=== PATIENT | female | born 1980 | race Caucasian/White ===

== ENCOUNTER 2020-11-22 12:28 | Emergency (ER) | payer OTHER, MEDICAID, SELFPAY ==
[2020-11-22 12:40] VITALS: BP 152/88; PULSE 89; RESP 15; TEMP 36.9; O2SAT 99; BMI 25.7
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
--- NOTE | 2020-11-22 13:44 | PC.NURSE ---
PT states she needs to leave to fruit or nut picker her son. Wants to leave before having seen MD. Asked if she could come right back. Informed pt that she will have to check back in at registration. Signed VDC form.
== END 2020-11-22 13:48 | disposition left against medical advice (07) ==
PROVIDERS: Emergency Provider Emergency Medicine; PCP Nurse Practitioner Family
CPT/HCPCS: 99281

== ENCOUNTER 2021-12-04 10:07 | Emergency (ER) | payer OTHER, MEDICAID, SELFPAY ==
[2021-12-04 10:09] VITALS: BP 138/75; PULSE 67; RESP 15; TEMP 36.7; O2SAT 100; BMI 26.2
[2021-12-04 10:49] LABS: COVID19 -Nasal RAPID Negative (Negative)
== END 2021-12-04 11:00 | disposition left against medical advice (07) ==
PROVIDERS: Emergency Provider Emergency Medicine; PCP Nurse Practitioner Family
DX: R07.9 Chest pain, unspecified (principal); Z20.822 Contact with and (suspected) exposure to COVID-19
CPT/HCPCS: 87635; 93005; 93010; 99282; C9803

== ENCOUNTER 2022-02-25 21:38 | Emergency (ER) | payer OTHER, MEDICAID, SELFPAY ==
[2022-02-25 21:45] VITALS: BP 173/115; PULSE 94; RESP 18; TEMP 36.6; O2SAT 96
--- NOTE | 2022-02-25 22:02 | ED.FEMALEGU ---
HPI - Female Genitourinary General Chief complaint: OB/Uterine Contractions Stated complaint: thinks having a miscarriage Time Seen by Provider: 02/25/22 21:56 Source: patient Mode of arrival: Ambulatory History of Present Illness HPI Narrative: 42-year-old female nonsmoker is a who thinks maybe she is and had heavy vaginal bleeding today. She had some spotting yesterday and today had heavy cramping and passed a large clot and thought it looked like tissue and came to see us. She is not taken any positive test but assume she is given what had happened. She denies any fever chills. She is not dizzy nor weak or lightheaded. Her last normal period was about 6 weeks ago. Related Data Home Medications Medication Instructions Recorded Confirmed buprenorphine 8 mg-naloxone 2 mg 1 tab sublingual DAILY 01/01/21 sublingual tablet Allergies Allergy/AdvReac Type Severity Reaction Status Date / Time No Known Drug Allergies Allergy Verified 12/04/21 10:09 Review of Systems Review of Systems Narrative: GENERAL: Denies chills, fatigue, malaise, fever, sweats. HEENT: Denies sinus pain, ear pain, sore throat, difficulty swallowing, dizziness. RESPIRATORY: Denies dyspnea, cough, wheezing, hemoptysis, sputum. CARDIOVASCULAR: Denies chest pain, palpitations, orthopnea, edema, GASTROINTESTINAL: Denies nausea, vomiting, abdominal pain, diarrhea, constipation, melena. : See HPI MUSCULOSKELETAL: denies weakness, joint pain, or bony pain SKIN: Denies rash, skin lesions, or other NEUROLOGIC: Denies weakness, headache, numbness, change in speech, confusion, seizures, incoordination. PSYCHIATRIC: No concerning psychosocial issues. 12 point review of systems is negative except for those stated above Patient History Medical History (Updated 02/26/22 @ 00:34 by Nato Fermin DO) Encounter for routine gynecological examination (01/01/21) Encounter for wellness examination in adult (01/01/21) tobacco type: vaping alcohol intake frequency: holidays/special occasions only Substance Use Type: marijuana Exam Narrative Exam Narrative: GENERAL: [42] year old patient appears stated age. Well-developed patient, in mild distress. HEAD: Atraumatic. Normocephalic. EYES: Pupils equal round and reactive. Extraocular motions intact. No scleral icterus. No injection or drainage. ENT: Nose without bleeding, purulent drainage. Throat without erythema, tonsillar hypertrophy or exudate. Airway patent. NECK: Trachea midline. Non tender CARDIOVASCULAR: Regular rate and rhythm without murmurs, gallops, or rubs. RESPIRATORY: Clear to auscultation. Breath sounds equal bilaterally. No wheezes, rales, or rhonchi. GASTROINTESTINAL: Abdomen soft, non-tender, nondistended. EXTREMITIES: No edema or joint tenderness. BACK: Nontender without deformity or crepitance. No flank tenderness. NEURO: AOx3. SKIN: No rash or erythema of visible areas Initial Vital Signs Initial Vital Signs: Vital Signs Temperature 98 F 02/25/22 21:45 Pulse Rate 94 H 02/25/22 21:45 Respiratory Rate 18 02/25/22 21:45 Blood Pressure 173/115 H 02/25/22 21:45 Pulse Oximetry 96 02/25/22 21:45 Oxygen Delivery Method 02/25/22 21:45 Course Orders Ordered: ED Orders 02/25/22 22:27 US pelvic complete Stat 02/25/22 22:50 COVID19 -Nasal RAPID/Pre-Proc Stat 02/25/22 22:51 ABO RH Type Stat Complete Blood Count AUTO DIFF Stat Comprehensive Metabolic Panel Stat HCG Quantitative /Beta subunit Stat 02/25/22 22:58 Urine Culture Stat Urine Microscopic Stat Vital Signs Vital signs: Vital Signs - 8 hr 02/25/22 21:45 Temperature 98 F Pulse Rate 94 H Respiratory Rate 18 Blood Pressure 173/115 H Pulse Oximetry 96 Oxygen Delivery Method Room Air MDM - Female Genitourinary Lab Data Result diagrams: 02/25/22 22:51 02/25/22 22:51 Labs: Lab Results 02/25/22 02/25/22 02/25/22 Range/Units 22:50 22:51 22:51 WBC (4.5-11.0) X10^3/uL RBC (4.0-5.2) X10^6/uL Hgb (12.0-16.0) g/dL Hct (36-46) % MCV (80-100) fL MCH (26-34) PG MCHC (30-36) % RDW (11.6-14.8) % Plt Count (150-400) X10^3/uL Neut % (Auto) (50-75) % Lymph % (Auto) (25-40) % [place] % (Auto) (3-14) % Eos % (Auto) (2-4) % Baso % (Auto) (0-2) % Neut # (Auto) (1372-8569) /uL Lymph # (Auto) (2410-6628) /uL [place] # (Auto) (0-900) /uL Eos # (Auto) (0-450) /uL Baso # (Auto) (0-100) /uL Sodium (137-145) mmol/L Potassium (3.4-5.1) mmol/L Chloride (98-107) mmol/L Carbon Dioxide (22-32) mmol/L BUN (7-17) mg/dL Creatinine (0.52-1.04) mg/dL Estimated GFR (>60) mL/min BUN/Creatinine Ratio (6-22) Glucose (70-100) mg/dL Calcium (8.4-10.2) mg/dL Total Bilirubin (0.2-1.3) mg/dL AST (14-36) IU/L ALT (<35) IU/L Alkaline Phosphatase (38-126) U/L Total Protein (6.3-8.2) g/dL Albumin (3.5-5.0) g/dL Globulin (1.7-4.1) g/dL Albumin/Globulin Ratio (1.0-2.8) HCG, Quant < 2.4 mIU/mL Urine RBC (0-5/HPF) Urine WBC (0-5/HPF) Ur Squamous Epith Cells (0-5/HPF) Urine Bacteria (None) Urine Mucus (Negative) Ur Culture Indicated? SARS-CoV-2 (PCR) Negative (Negative) Blood Type A Positive 02/25/22 02/25/22 02/25/22 Range/Units 22:51 22:51 22:58 WBC 8.4 (4.5-11.0) X10^3/uL RBC 4.20 (4.0-5.2) X10^6/uL Hgb 12.6 (12.0-16.0) g/dL Hct 36.9 (36-46) % MCV 88.0 (80-100) fL MCH 30.0 (26-34) PG MCHC 34.0 (30-36) % RDW 13.5 (11.6-14.8) % Plt Count 317 (150-400) X10^3/uL Neut % (Auto) 73.7 (50-75) % Lymph % (Auto) 13.4 L (25-40) % [place] % (Auto) 9.1 (3-14) % Eos % (Auto) 3.0 (2-4) % Baso % (Auto) 0.8 (0-2) % Neut # (Auto) 6200 (8115-0132) /uL Lymph # (Auto) 1100 (0542-5296) /uL [place] # (Auto) 800 (0-900) /uL Eos # (Auto) 200 (0-450) /uL Baso # (Auto) 100 (0-100) /uL Sodium 140 (137-145) mmol/L Potassium 3.8 (3.4-5.1) mmol/L Chloride 104 (98-107) mmol/L Carbon Dioxide 27 (22-32) mmol/L BUN 13 (7-17) mg/dL Creatinine 0.58 (0.52-1.04) mg/dL Estimated GFR > 60 (>60) mL/min BUN/Creatinine Ratio 22.4 H (6-22) Glucose 95 (70-100) mg/dL Calcium 8.4 (8.4-10.2) mg/dL Total Bilirubin 0.4 (0.2-1.3) mg/dL AST 24 (14-36) IU/L ALT 18 (<35) IU/L Alkaline Phosphatase 61 (38-126) U/L Total Protein 7.8 (6.3-8.2) g/dL Albumin 4.2 (3.5-5.0) g/dL Globulin 3.6 (1.7-4.1) g/dL Albumin/Globulin Ratio 1.2 (1.0-2.8) HCG, Quant mIU/mL Urine RBC 30-100/hpf H (0-5/HPF) Urine WBC 1-5/hpf (0-5/HPF) Ur Squamous Epith Cells 1-5 /hpf (0-5/HPF) Urine Bacteria Few (2-10) H (None) Urine Mucus 2+ H (Negative) Ur Culture Indicated? Specimen cultured SARS-CoV-2 (PCR) (Negative) Blood Type Point of Care Testing Test Results Negative Urine Dip Bedside Urine Glucose Negative Bedside Urine Bilirubin - Negative Bedside Urine Ketone - Negative Urine Specific [place] 1.030 Bedside Urine Occult Blood +++ Bedside Urine pH 6.0 Bedside Urine Protein + 30 Bedside Urine Urobilinogen +/- 1mg Bedside Urine Nitrite - Negative Bedside Urine Leukocytes - Negative Esterase Imaging Data US - [employer]: Radiologist's Impression: Radha Arias??42??F??1980 ? Allergy/Adv: No Known Drug Allergies (More??) Close Pelvis Ultrasound (Signed) Torres Lester - 02/25/22 Launch?[address] [address] Ultrasound Report Signed Patient: Radha Arias MR#: [id number] : 1980 Acct:[id number] Age/Sex: 42 / F Date of Service: 02/25/22 Loc: ED Accession Number: [id number] ?? Procedure: US pelvic complete Ordering Provider: Nato Fermin D.O. PROCEDURE:? US PELVIC COMPLETE ? INDICATIONS:? BLEEDING ? TECHNIQUE:? Real-time scanning was performed of the pelvic organs, with image documentation.? Additional endovaginal scanning was necessary due to incomplete visualization of the adnexal and endometrial structures by transabdominal scanning.? ? COMPARISON:? No pertinent prior study. ? FINDINGS:? ?? Uterine body is markedly enlarged measuring 9.0 x 11.2 x 17 cm.? Multiple uterine fibroids present.? Largest fibroid measures 9 cm.? Detailed characterization of the fibroids is limited due to the large size and overall market enlargement of uterus with limited sonographic windows. ? Endometrium is largely obscured by the fibroids. ? Neither ovary identified? ? ? IMPRESSION:? Markedly enlarged multi fibroid uterus.? Nonemergent MR evaluation recommended if results would impact management.? We strive to produce accurate, complete, and clear reports of imaging services. To assist us in improving patient care, this report was composed using standard report templates and voice recognition software. Therefore, it may contain abnormal punctuation, insertions and/or omissions. Occasional wrong-word or sound-alike substitutions may occur. Though we review the report and make efforts to correct it, we do recommend that the report be read carefully in proper context to recognize any text inaccuracies. ? ? Dictated by: Torres Lester M.D. on 02/26/2022 at 0:11 ? ? Approved by: Torres Lester M.D. on 02/26/2022 at 0:12 ? MDM Narrative Medical decision making narrative: 42-year-old female with episode of pelvic cramping in the passage of a large clot presents with concern of miscarriage. She states her last period was 6 weeks ago. She is no longer actively bleeding and has very minimal pain. Vital signs are reassuring and tests are all negative. Ultrasound demonstrates fibroids but no evidence of any intrauterine products. She is hemodynamically stable. Return precautions discussed and questions answered to her apparent satisfaction Discharge Plan Departure Patient Disposition: Home Clinical Impression: Abnormal vaginal bleeding Instructions: DI for Vaginal Bleeding Activity Restrictions/Additional Instructions: *You have been diagnosed with [abnormal vaginal bleeding with very reassuring work and urine. There is no evidence of . The ultrasound suggests fibroids in her uterus and this will need to be followed closely by your doctor who will help further evaluate this, possibly with referral to OB Gyne or advanced imaging such as an MRI] *What to do: *Please continue to take your regular medications as directed. [ ] New medication prescriptions sent to your pharmacy: [ ] [ ] New medication written as a paper prescription [x ] No new medications given *Please follow up with your primary care provider in 2-3 days, call for an appointment. Let them know you were seen in the Emergency Department and that we ask that you be seen in follow up. We will electronically transmit a record of today's note if your PCP is in our system *If you do not have a primary care provider please contact the [facility] Resource line at [phone]. They will ask some questions about your medical history and help get you set up with a doctor in the community. *Return to Emergency Department if you should have any new, worsening or concerning symptoms, such as [fever greater than 101 F, shaking chills, worsening pain, persistent vomiting or other bothersome symptoms] Prescriptions: No Action buprenorphine-naloxone 8-2 mg tablet, sublingual 1 tab SL DAILY Referrals: Courtney Dyer ARNP [Primary Care Provider] - Visit Report Forms: Patient Portal/API
--- NOTE | 2022-02-25 22:27 | DI.US.S_ITS ---
PROCEDURE: US PELVIC COMPLETE INDICATIONS: BLEEDING TECHNIQUE: Real-time scanning was performed of the pelvic organs, with image documentation. Additional endovaginal scanning was necessary due to incomplete visualization of the adnexal and endometrial structures by transabdominal scanning. COMPARISON: No pertinent prior study. FINDINGS: Uterine body is markedly enlarged measuring 9.0 x 11.2 x 17 cm. Multiple uterine fibroids present. Largest fibroid measures 9 cm. Detailed characterization of the fibroids is limited due to the large size and overall market enlargement of uterus with limited sonographic windows. Endometrium is largely obscured by the fibroids. Neither ovary identified IMPRESSION: Markedly enlarged multi fibroid uterus. Nonemergent MR evaluation recommended if results would impact management. We strive to produce accurate, complete, and clear reports of imaging services. To assist us in improving patient care, this report was composed using standard report templates and voice recognition software. Therefore, it may contain abnormal punctuation, insertions and/or omissions. Occasional wrong-word or sound-alike substitutions may occur. Though we review the report and make efforts to correct it, we do recommend that the report be read carefully in proper context to recognize any text inaccuracies. Dictated by: Torres Lester M.D. on 02/26/2022 at 0:11 Approved by: Torres Lester M.D. on 02/26/2022 at 0:12
[2022-02-25 23:04] LABS: Add Manual Diff / Slide Review NO; Basophils Absolute Auto 100 /uL (0-100); Basophils Percent Auto 0.8 % (0-2); Eosinophils Absolute Auto 200 /uL (0-450); Hematocrit 36.9 % (36-46); Hemoglobin 12.6 g/dL (12.0-16.0); Lymphocytes Absolute Auto 1100 /uL (1100-4500); Lymphocytes Percent Auto 13.4 % (25-40); Monocytes Absolute Auto 800 /uL (0-900); Monocytes Percent Auto 9.1 % (3-14); Neutrophils Absolute Auto 6200 /uL (1500-7000); Neutrophils Percent Auto 73.7 % (50-75); Platelet Count 317 X10^3/uL (150-400); Red Cell Distribution Width 13.5 % (11.6-14.8); White Blood Cell Count 8.4 X10^3/uL (4.5-11.0)
[2022-02-25 23:10] LABS: COVID19 -Nasal RAPID Negative (Negative)
[2022-02-25 23:14] LABS: Alanine Aminotransferase 18 IU/L (<35); Albumin 4.2 g/dL (3.5-5.0); Albumin Globulin Ratio 1.2 (1.0-2.8); Alkaline Phosphatase 61 U/L (38-126); Aspartate Aminotransferase 24 IU/L (14-36); BUN Creatinine Ratio 22.4 (6-22); Bilirubin Total 0.4 mg/dL (0.2-1.3); Blood Urea Nitrogen 13 mg/dL (7-17); Calcium 8.4 mg/dL (8.4-10.2); Carbon Dioxide 27 mmol/L (22-32); Chloride 104 mmol/L (98-107); Estimated Glomerular Filt Rate > 60 mL/min (>60); Globulin 3.6 g/dL (1.7-4.1); Glucose 95 mg/dL (70-100); HEMOLYSIS < 15 (0-50); Potassium 3.8 mmol/L (3.4-5.1); Sodium 140 mmol/L (137-145); Total Protein 7.8 g/dL (6.3-8.2)
[2022-02-25 23:25] LABS: Mucus Urine 2+ (Negative); RBC Urine 30-100/HPF (0-5/HPF); Squamous Epithelial Cell Urine 1-5 /HPF (0-5/HPF); WBC Urine 1-5/HPF (0-5/HPF)
[2022-02-25 23:26] LABS: Bacteria Urine Few (2-10)
[2022-02-25 23:27] LABS: Culture Indicated Urine Specimen Cultured
[2022-02-25 23:47] LABS: HCG Quantitative /Beta subunit < 2.4 mIU/mL
[2022-02-26 00:50] VITALS: BP 137/77; PULSE 89; RESP 18; O2SAT 93
== END 2022-02-26 00:51 | disposition home or self-care (01) ==
PROVIDERS: Emergency Provider Emergency Medicine; PCP Nurse Practitioner Family
DX: N93.9 Abnormal uterine and vaginal bleeding, unspecified (principal); Z20.822 Contact with and (suspected) exposure to COVID-19
CPT/HCPCS: 36415; 76830; 76856; 80053; 81003; 81015; 81025; 84702; 85025; 86900; 86901; 87077; 87086; 87186; 87635; 99282; 99284; C9803

== ENCOUNTER → 2022-02-28 15:27 | Outpatient (CLI) | payer OTHER, MEDICAID, SELFPAY ==
[2022-02-28 16:58] LABS: Add Manual Diff / Slide Review NO; Basophils Absolute Auto 0 /uL (0-100); Basophils Percent Auto 0.7 % (0-2); Eosinophils Absolute Auto 200 /uL (0-450); Eosinophils Percent Auto 4.5 % (2-4); Hematocrit 37.4 % (36-46); Hemoglobin 12.8 g/dL (12.0-16.0); Lymphocytes Absolute Auto 1300 /uL (1100-4500); Lymphocytes Percent Auto 24.7 % (25-40); Mean Corpuscular HGB Conc 34.2 % (30-36); Mean Corpuscular Hemoglobin 30.3 PG (26-34); Mean Corpuscular Volume 88.6 fL (80-100); Monocytes Absolute Auto 600 /uL (0-900); Monocytes Percent Auto 11.1 % (3-14); Neutrophils Absolute Auto 3200 /uL (1500-7000); Platelet Count 319 X10^3/uL (150-400); Red Blood Cell Count 4.22 X10^6/uL (4.0-5.2); Red Cell Distribution Width 13.4 % (11.6-14.8); White Blood Cell Count 5.4 X10^3/uL (4.5-11.0)
[2022-02-28 18:36] LABS: HCG Quantitative /Beta subunit < 2.4 mIU/mL
== END ==
PROVIDERS: PCP Pediatrics; Referring Provider Pediatrics; Visit Provider Pediatrics
DX: N93.9 Abnormal uterine and vaginal bleeding, unspecified (principal); R10.2 Pelvic and perineal pain
CPT/HCPCS: 36415; 84702; 85025

== ENCOUNTER 2022-12-04 12:13 | Emergency (ER) | payer OTHER, MEDICAID, SELFPAY ==
[2022-12-04 12:23] VITALS: BP 163/93; PULSE 93; RESP 18; TEMP 36.6; O2SAT 100; BMI 25.7
--- NOTE | 2022-12-04 12:31 | DI.RAD.S_ITS ---
PROCEDURE: XR CHEST 1V INDICATIONS: chest pain TECHNIQUE: One view of the chest was acquired. COMPARISON: [facility], , CHEST 2 VIEW, 02/15/2007, 9:35. FINDINGS: Surgical changes and devices: None. Lungs and pleura: Lungs are clear. No pleural effusions or pneumothorax. Mediastinum: Mediastinal contours appear normal. Heart size is normal. Bones and chest wall: No suspicious bony lesions. Overlying soft tissues appear unremarkable. IMPRESSION: No acute cardiopulmonary process. Dictated by: Eliezer Blevins M.D. on 12/04/2022 at 12:52 Approved by: Eliezer Blevins M.D. on 12/04/2022 at 12:52
--- NOTE | 2022-12-04 12:58 | ED.CHESTPAIN ---
HPI - Chest Pain General Chief Complaint: Chest Pain Stated Complaint: sob, swollen ankles, extremly dizzy Time Seen by Provider: 12/04/22 12:43 Source: patient Mode of arrival: Ambulatory Limitations: no limitations History of Present Illness HPI narrative: Patient is a 42-year-old female who comes in the emergency department for evaluation of shortness of breath specific on exertion and bilateral swollen ankles and also feeling dizzy. Her legs have been swollen for the past 2 weeks. She states that they do seem to get better in the morning but then worse as the day goes on. She did recently returned from a vacation in [place] however the legs were swollen prior to that. While she was in [place] she states that it was very hot. She did not drink enough water. On the flight home she had an episode of vomiting. She had an evaluation by medical providers who were on the aircraft. She reports that she was told that her oxygen saturations were in the 70s and she was placed on oxygen. When the plane landed she did not go to be evaluated. That was 3 days ago. She is not been on oxygen for the past 3 days. She states she gets short of breath with exerting. No chest pain. No continued nausea or vomiting. Related Data Previous Rx's Medication Instructions Recorded medroxyprogesterone 10 mg tablet 10 mg PO DAILY #90 tabs 11/14/22 furosemide 20 mg tablet (Lasix) 20 mg PO DAILY 7 days #7 tabs 12/04/22 Allergies Allergy/AdvReac Type Severity Reaction Status Date / Time No Known Drug Allergies Allergy Verified 12/04/22 12:31 Review of Systems Review of Systems ROS Unobtainable: All systems reviewed & are unremarkable except as noted in HPI and below Patient History Social History Smoking Status: Current every day smoker Tobacco: How many years used: 2 second hand exposure: Yes alcohol intake: current (1 glass of wine, 1-2x/week) substance use type: does not use Smoking Status: Current every day smoker tobacco type: vaping alcohol intake frequency: holidays/special occasions only Substance Use Type: marijuana Exam Initial Vital Signs Initial Vital Signs: Vital Signs Temperature 97.9 F 12/04/22 12:23 Pulse Rate 93 H 12/04/22 12:23 Respiratory Rate 18 12/04/22 12:23 Blood Pressure 163/93 H 12/04/22 12:23 Pulse Oximetry 100 12/04/22 12:23 Oxygen Delivery Method Room Air 12/04/22 12:23 Const General: cooperative, comfortable and No ill appearing HENMT Head: normal to inspection and normocephalic Resp Effort & Inspection: normal respiratory effort Auscultation: clear to auscultation bilaterally Cardio Rate: regular rate Rhythm: regular rhythm GI Inspection: normal to inspection Skin General: no rashes or lesions noted Neuro General: patient alert, patient awake, patient oriented x3 and moves all extremities Extrem General: edema Course Orders Ordered: ED Orders 12/04/22 12:31 XR chest 1V Stat 12/04/22 12:52 Complete Blood Count AUTO DIFF Stat Comprehensive Metabolic Panel Stat D Dimer Stat Lipase Stat Magnesium Stat PTT Partial Thromboplastin Anders Stat Prothrombin Time INR Stat Troponin & CK Cardiac Panel Stat 12/04/22 12:55 Covid-19 + FLU A/B + RSV - PCR Stat 12/04/22 12:57 COVID19 -Nasal RAPID Stat 12/04/22 14:04 EKG-12 Lead Stat Discontinued Medications Aspirin (Aspirin 81 Mg Chew Tab) 324 mg PO NOW ONE Stop: 12/04/22 12:32 Last Admin: 12/04/22 13:02 Dose: Not Given Documented By: SKINNY Vital Signs Vital signs: Vital Signs - 8 hr 12/04/22 12:23 12/04/22 14:17 12/04/22 14:37 Temperature 97.9 F Pulse Rate 93 H 93 H 79 Respiratory Rate 18 16 18 Blood Pressure 163/93 H 117/66 134/87 Pulse Oximetry 100 99 100 Oxygen Delivery Method Room Air Room Air Room Air MDM - Chest Pain Lab Data Attestation: I reviewed the patient's lab results. 12/04/22 12:52 12/04/22 12:52 Labs: Lab Results 12/04/22 12/04/22 12/04/22 Range/Units 12:52 12:52 12:52 WBC 5.1 (4.5-11.0) X10^3/uL RBC 4.69 (4.0-5.2) X10^6/uL Hgb 12.9 (12.0-16.0) g/dL Hct 39.6 (36-46) % MCV 84.4 (80-100) fL MCH 27.4 (26-34) PG MCHC 32.5 (30-36) % RDW 14.2 (11.6-14.8) % Plt Count 336 (150-400) X10^3/uL Neut % (Auto) 56.6 (50-75) % Lymph % (Auto) 24.9 L (25-40) % [place] % (Auto) 9.0 (3-14) % Eos % (Auto) 8.8 H (2-4) % Baso % (Auto) 0.7 (0-2) % Neut # (Auto) 2900 (9039-7275) /uL Lymph # (Auto) 1300 (0190-6308) /uL [place] # (Auto) 500 (0-900) /uL Eos # (Auto) 500 H (0-450) /uL Baso # (Auto) 0 (0-100) /uL PT 10.3 (10.1-12.7) SECONDS INR 0.9 (0.9-1.3) APTT 40 H (26-36) SECONDS D-Dimer (<500) ng/ml Sodium 141 (137-145) mmol/L Potassium 3.6 (3.4-5.1) mmol/L Chloride 103 (98-107) mmol/L Carbon Dioxide 29 (22-32) mmol/L BUN 10 (7-17) mg/dL Creatinine 0.70 (0.52-1.04) mg/dL Estimated GFR > 60 (>60) mL/min BUN/Creatinine Ratio 14.3 (6-22) Glucose 81 (70-100) mg/dL Calcium 8.9 (8.4-10.2) mg/dL Magnesium 2.0 (1.6-2.3) mg/dL Total Bilirubin 0.3 (0.2-1.3) mg/dL AST 27 (14-36) IU/L ALT 22 (<35) IU/L Alkaline Phosphatase 78 (38-126) U/L Total Creatine Kinase 88 (30-135) U/L CK-MB (CK-2) TNP CK-MB (CK-2) Rel Index TNP Troponin I < 0.012 (0.01-0.034) ng/mL Total Protein 8.9 H (6.3-8.2) g/dL Albumin 4.6 (3.5-5.0) g/dL Globulin 4.3 H (1.7-4.1) g/dL Albumin/Globulin Ratio 1.1 (1.0-2.8) Lipase 96 (23-300) U/L SARS-CoV-2 (PCR) (Negative) Influenza A (RT-PCR) (NEGATIVE) Influenza B (RT-PCR) (NEGATIVE) RSV (PCR) (Negative) 12/04/22 12/04/22 Range/Units 12:52 12:55 WBC (4.5-11.0) X10^3/uL RBC (4.0-5.2) X10^6/uL Hgb (12.0-16.0) g/dL Hct (36-46) % MCV (80-100) fL MCH (26-34) PG MCHC (30-36) % RDW (11.6-14.8) % Plt Count (150-400) X10^3/uL Neut % (Auto) (50-75) % Lymph % (Auto) (25-40) % [place] % (Auto) (3-14) % Eos % (Auto) (2-4) % Baso % (Auto) (0-2) % Neut # (Auto) (6053-8381) /uL Lymph # (Auto) (4248-0654) /uL [place]mers # (Auto) (0-900) /uL Eos # (Auto) (0-450) /uL Baso # (Auto) (0-100) /uL PT (10.1-12.7) SECONDS INR (0.9-1.3) APTT (26-36) SECONDS D-Dimer 423 (<500) ng/ml Sodium (137-145) mmol/L Potassium (3.4-5.1) mmol/L Chloride (98-107) mmol/L Carbon Dioxide (22-32) mmol/L BUN (7-17) mg/dL Creatinine (0.52-1.04) mg/dL Estimated GFR (>60) mL/min BUN/Creatinine Ratio (6-22) Glucose (70-100) mg/dL Calcium (8.4-10.2) mg/dL Magnesium (1.6-2.3) mg/dL Total Bilirubin (0.2-1.3) mg/dL AST (14-36) IU/L ALT (<35) IU/L Alkaline Phosphatase (38-126) U/L Total Creatine Kinase (30-135) U/L CK-MB (CK-2) CK-MB (CK-2) Rel Index Troponin I (0.01-0.034) ng/mL Total Protein (6.3-8.2) g/dL Albumin (3.5-5.0) g/dL Globulin (1.7-4.1) g/dL Albumin/Globulin Ratio (1.0-2.8) Lipase (23-300) U/L SARS-CoV-2 (PCR) Negative (Negative) Influenza A (RT-PCR) Flu a negative (NEGATIVE) Influenza B (RT-PCR) Flu b negative (NEGATIVE) RSV (PCR) Negative (Negative) Imaging Data Chest x-ray: Radiologist's Impression: PROCEDURE:? XR CHEST 1V ? INDICATIONS:? chest pain ? TECHNIQUE:? One view of the chest was acquired.? ? COMPARISON:? Merged With [facility], , CHEST 2 VIEW, 02/15/2007, 9:35. ? FINDINGS:? ? Surgical changes and devices:? None.? ? Lungs and pleura:? Lungs are clear.? No pleural effusions or pneumothorax.? ? Mediastinum:? Mediastinal contours appear normal.? Heart size is normal.? ? Bones and chest wall:? No suspicious bony lesions.? Overlying soft tissues appear unremarkable.? ? IMPRESSION:? No acute cardiopulmonary process. ECG Data Attestation: I personally reviewed and interpreted this ECG as follows: Interpretation: Sinus rhythm Ventricular rate is 79 Normal axis Normal QRS Normal QTC No ST T wave changes MDM Narrative Medical decision making narrative: Patient does have bilateral lower extremity swelling however is not hypoxic and not tachypneic. Her lower extremity swelling actually started before her recent travel. It is equal bilateral. Low suspicion for DVT. Patient is not in respiratory distress here. Unsure the etiology of the issues that she had when she was on the plane however those were a couple days ago and she has not had any shortness of breath since then. Her chest x-ray is unremarkable. No indication for antibiotics. Patient not clinically in heart failure. Patient stated that she needed to leave the emergency department in order to go pick her child up from school. We discussed her workup that has been done so far. We will place her on Lasix for the next couple days. She was instructed that she needed to contact her primary doctor for a follow-up to discuss further workup and return to the emergency department for worsening symptoms. She expressed understanding and agreement. Discharge Plan Departure Patient Disposition: Home Clinical Impression: Peripheral edema Instructions: DI for Peripheral Edema -- Bilateral Activity Restrictions/Additional Instructions: I do recommend that you contact your primary doctor as you will need further workup of the exact cause of extremity swelling. Until then I do recommend we put you on a diuretic. This medication will cause you to urinate more which will hopefully decrease the swelling your having. You can also try other things like compression stockings. Return to the emergency department for worsening symptoms. Prescriptions: New furosemide [Lasix] 20 mg tablet 20 mg PO DAILY 7 Days Qty: 7 0RF No Action medroxyprogesterone 10 mg tablet 10 mg PO DAILY Qty: 90 0RF Rx Instructions: 2 tabs PO Q2hr until bleeding stops, [id number], [id number], [id number], [id number], [id number] Referrals: Myriam Thompson MD [Primary Care Provider] - Stand Alone Forms: Patient Portal/API
[2022-12-04 13:04] LABS: Add Manual Diff / Slide Review NO; Basophils Absolute Auto 0 /uL (0-100); Basophils Percent Auto 0.7 % (0-2); Eosinophils Absolute Auto 500 /uL (0-450); Eosinophils Percent Auto 8.8 % (2-4); Hematocrit 39.6 % (36-46); Hemoglobin 12.9 g/dL (12.0-16.0); Lymphocytes Absolute Auto 1300 /uL (1100-4500); Lymphocytes Percent Auto 24.9 % (25-40); Mean Corpuscular HGB Conc 32.5 % (30-36); Mean Corpuscular Hemoglobin 27.4 PG (26-34); Mean Corpuscular Volume 84.4 fL (80-100); Monocytes Absolute Auto 500 /uL (0-900); Neutrophils Absolute Auto 2900 /uL (1500-7000); Neutrophils Percent Auto 56.6 % (50-75); Platelet Count 336 X10^3/uL (150-400); Red Blood Cell Count 4.69 X10^6/uL (4.0-5.2); Red Cell Distribution Width 14.2 % (11.6-14.8); White Blood Cell Count 5.1 X10^3/uL (4.5-11.0)
[2022-12-04 13:11] LABS: INR 0.9 (0.9-1.3); Prothrombin Time 10.3 SECONDS (10.1-12.7)
[2022-12-04 13:14] LABS: PTT Partial Thromboplastin Tim 40 SECONDS (26-36)
[2022-12-04 13:17] LABS: Alanine Aminotransferase 22 IU/L (<35); Albumin 4.6 g/dL (3.5-5.0); Albumin Globulin Ratio 1.1 (1.0-2.8); Alkaline Phosphatase 78 U/L (38-126); Aspartate Aminotransferase 27 IU/L (14-36); BUN Creatinine Ratio 14.3 (6-22); Bilirubin Total 0.3 mg/dL (0.2-1.3); Blood Urea Nitrogen 10 mg/dL (7-17); Calcium 8.9 mg/dL (8.4-10.2); Carbon Dioxide 29 mmol/L (22-32); Chloride 103 mmol/L (98-107); Creatine Kinase 88 U/L (30-135); Estimated Glomerular Filt Rate > 60 mL/min (>60); Globulin 4.3 g/dL (1.7-4.1); Glucose 81 mg/dL (70-100); HEMOLYSIS < 15 (0-50); Lipase 96 U/L (23-300); Potassium 3.6 mmol/L (3.4-5.1); Sodium 141 mmol/L (137-145); Total Protein 8.9 g/dL (6.3-8.2)
[2022-12-04 13:20] LABS: D Dimer 423 ng/ml (<500)
[2022-12-04 13:27] LABS: Troponin I < 0.012 ng/mL (0.01-0.034)
[2022-12-04 13:41] LABS: COVID-19 CEPHEID 4-PLEX PCR Negative (Negative); Influenza A - CEPHEID Flu A NEGATIVE (NEGATIVE); Influenza B - CEPHEID Flu B NEGATIVE (NEGATIVE); Respiratory Syncytial Virus Negative (Negative)
[2022-12-04 14:17] VITALS: BP 117/66; PULSE 93; RESP 16; O2SAT 99
--- NOTE | 2022-12-04 14:17 | PC.NURSE ---
Pt is wanting to leave due to needing to belt picker her son from middle school. Provider notified.
[2022-12-04 14:37] VITALS: BP 134/87; PULSE 79; RESP 18; O2SAT 100
== END 2022-12-04 14:38 | disposition home or self-care (01) ==
PROVIDERS: Emergency Provider Emergency Medicine; PCP Family Medicine
DX: R60.9 Edema, unspecified (principal); R07.9 Chest pain, unspecified; Z20.822 Contact with and (suspected) exposure to COVID-19
CPT/HCPCS: 0241U; 71045; 80053; 82550; 83690; 83735; 84484; 85025; 85379; 85610; 85730; 93005; 99283; 99284

== ENCOUNTER → 2023-01-26 08:11 | Outpatient (CLI) | payer OTHER, MEDICAID, SELFPAY ==
--- NOTE | 2023-01-26 08:12 | DI.ECHO.S_ITS ---
[facility] +---------+ : : [address] : [place] : : : : [id number] : : : : Phone: [phone]---------+ Echocardiogram Report + + :Name: PB TAMAYO Study Date: 01/26/2023 Height: 63 in : :[facility] ReadingLocation: Weight: 162 lb : : Gender: Female BSA: 1.8 m2 : :: 1980 Age: 43 yrs BP: 149/91 mmHg: :Reason For Study: CHEST PAIN, LOWER EXTREMITY EDEMA : :Ordering Physician: BOGDAN, : :SETH Performed By: Zully Shah : :Referring: SETH MCFADDEN : + + Interpretation Summary Limited Echo: 1) Normal left ventricular thickness, size, wall motion, and systolic function (EF 60-65%). 2) Normal right ventricular size and function. 3) There is no pericardial effusion. 4) No prior Echo available for comparison. Procedure: Images were not obtained from all of the standard acoustic windows due to the limited scope of the study. The study quality was technically adequate. There is no prior echocardiogram noted for this patient. The patient was in sinus rhythm with heart rates between 70-85 bpm during the exam. Left Ventricle: The left ventricle is normal in size and wall thickness. The ejection fraction is estimated to be 60-65%. Left ventricular systolic function appears normal without focal wall motion abnormalities. Mitral Valve: The mitral valve is normal in structure and function. There is trace mitral regurgitation. Aortic Valve: The aortic valve is trileaflet. The aortic valve opens well. Tricuspid Valve: The tricuspid valve is normal in structure and function. There is trace tricuspid regurgitation. Pulmonary artery pressures cannot be estimated because of the lack of a measurable TR jet velocity. Great Vessels: The IVC is of normal diameter and collapses greater than 50% with a sniff. This suggests a low right atrial pressure of 3 mm Hg. Pericardium/ Pleura There is no pericardial effusion. There is no pleural effusion. MMode/2D Measurements & Calculations LVIDd: 4.3 cm IVC diam: 1.5 cm LVIDs: 2.7 cm FS: 36.4 % IVSd: 0.83 cm LVPWd: 0.81 cm LV lockwood. diameter/BSA (cm/m^2): 2.4 LV sys. diameter/BSA (cm/m^2): 1.5 Reading Physician:02:06 PM
== END ==
PROVIDERS: PCP Family Medicine; Referring Provider Family Medicine; Visit Provider Family Medicine
DX: R60.0 Localized edema (principal); R07.9 Chest pain, unspecified
CPT/HCPCS: 93307

== ENCOUNTER → 2023-02-13 13:34 | Outpatient (CLI) | payer OTHER, MEDICAID, SELFPAY ==
--- NOTE | 2023-02-18 10:06 | P.PFT.S_ITS ---
Pulmonary Function Test Referral & Results Date Patient Seen: 02/13/23 Results: The?spirometry?demonstrates?an?FVC?of?3.40?L?which?is?95%?of?predicted. The?FEV1?was?measured?at?2.79?L?which?is?96%?of?predicted. The?FEV1/FVC?ratio?was?82?which?is?100%?of?predicted. Following?the?admin istration?of?bronchodilator?there?was?no?appreciable?change?to?above?normal?numb ers. Lung?volumes?show?an?SVC?of?3.33?L?which?is?100%?of?predicted. The?diffusing?capacity?was?measured?at?20.64?which?is?90%?of?predicted. The?maximum?voluntary?ventilation?was?normal Interpretation: This?study?demonstrates?normal?pulmonary?function
--- NOTE | 2023-02-18 10:06 | PM.PFT.1 ---
Pulmonary Function Test Referral & Results Date Patient Seen: 02/13/23 Results: The?spirometry?demonstrates?an?FVC?of?3.40?L?which?is?95%?of?predicted. The?FEV1?was?measured?at?2.79?L?which?is?96%?of?predicted. The?FEV1/FVC?ratio?was?82?which?is?100%?of?predicted. Following?the?administration?of?bronchodilator?there?was?no?appreciable?change?to?above?normal?numbers. Lung?volumes?show?an?SVC?of?3.33?L?which?is?100%?of?predicted. The?diffusing?capacity?was?measured?at?20.64?which?is?90%?of?predicted. The?maximum?voluntary?ventilation?was?normal Interpretation: This?study?demonstrates?normal?pulmonary?function
== END ==
PROVIDERS: PCP Family Medicine; Referring Provider Family Medicine; Visit Provider Family Medicine
DX: R06.02 Shortness of breath (principal)
CPT/HCPCS: 94060; 94726; 94729

== ENCOUNTER 2023-08-25 22:45 | Emergency (ER) | payer OTHER, MEDICAID, SELFPAY ==
--- NOTE | 2023-08-25 22:51 | DI.RAD.S_ITS ---
PROCEDURE: XR CHEST 2V INDICATIONS: SOB TECHNIQUE: 2 views of the chest were acquired. COMPARISON: [facility], CR, XR CHEST 1V, 12/04/2022, 12:34. FINDINGS: Surgical changes and devices: None. Lungs and pleura: Lungs are clear. No pleural effusions or pneumothorax. Mediastinum: Mediastinal contours are normal. Heart size is normal. Bones and chest wall: No suspicious bony abnormalities. Soft tissues appear unremarkable. IMPRESSION: No acute cardiopulmonary abnormality is seen. Dictated by: Avani Dorman M.D. on 08/25/2023 at 23:13 Approved by: Avani Dorman M.D. on 08/25/2023 at 23:13
[2023-08-25 22:52] VITALS: BP 155/82; PULSE 104; RESP 20; TEMP 36.6; O2SAT 97; BMI 26.5
[2023-08-25 22:54] VITALS: PULSE 99; O2SAT 98
[2023-08-25 23:00] VITALS: PULSE 90; O2SAT 100
[2023-08-25 23:30] VITALS: PULSE 80; RESP 18; O2SAT 100
--- NOTE | 2023-08-25 23:49 | ED_ITS ---
HPI - General Adult General Chief complaint: Upper Respiratory Symptoms Stated complaint: 3 days of difficulty breathing Time Seen by Provider: 08/25/23 22:47 Source: patient Mode of arrival: Ambulatory History of Present Illness HPI narrative: Patient is a 43-year-old female who is here for 3 days of difficulty breathing. She reports cough, fever and headaches. She also states that she feels like there is fluid moving around in her lungs. Patient has had issues with shortness of breath in the past. Had pulmonary function tests at the end of last year that were unremarkable. Related Data Previous Rx's Medication Instructions Recorded hydroxyzine HCl 25 mg tablet 25 mg PO QID #60 tabs 04/29/23 sertraline 50 mg tablet 100 mg (2 x 50 mg) PO DAILY #60 04/29/23 tabs Allergies Allergy/AdvReac Type Severity Reaction Status Date / Time No Known Drug Allergies Allergy Verified 04/29/23 15:10 Review of Systems Cardiovascular Cardiovascular: Reports system reviewed and no additional complaints, except as documented Respiratory Respiratory: Reports system reviewed and no additional complaints, except as documented Integumentary/Breasts Skin/Breast: Reports system reviewed and no additional complaints, except as documented Hematologic/Lymphatic On Anticoagulants: No Patient History Social History Smoking Status: Current every day smoker Tobacco: How many years used: 2 second hand exposure: Yes alcohol intake: current (1 glass of wine, 1-2x/week) substance use type: does not use Smoking Status: Current every day smoker tobacco type: vaping alcohol intake frequency: holidays/special occasions only Substance Use Type: marijuana Exam Initial Vital Signs Initial Vital Signs: Vital Signs Temperature 98 F 08/25/23 22:52 Pulse Rate 104 H 08/25/23 22:52 Respiratory Rate 20 08/25/23 22:52 Blood Pressure 155/82 H 08/25/23 22:52 Pulse Oximetry 97 08/25/23 22:52 Oxygen Delivery Method Room Air 08/25/23 22:52 HENMT Head: normal to inspection and normocephalic Resp Effort & Inspection: normal respiratory effort Auscultation: clear to auscultation bilaterally Cardio Rate: regular rate Rhythm: regular rhythm Neuro General: patient alert, patient awake and moves all extremities Course Orders Ordered: ED Orders 08/25/23 22:51 XR chest 2V Stat 08/25/23 23:00 Respiratory Panel (Film Array) Stat Vital Signs Vital signs: Vital Signs - 8 hr 08/25/23 22:52 08/25/23 22:54 08/25/23 23:00 Temperature 98 F Pulse Rate 104 H 99 H 90 Respiratory Rate 20 Blood Pressure 155/82 H Pulse Oximetry 97 98 100 Oxygen Delivery Method Room Air 08/25/23 23:30 Temperature Pulse Rate 80 Respiratory Rate 18 Blood Pressure Pulse Oximetry 100 Oxygen Delivery Method Medical Decision Making Medical Records Medical records reviewed: Yes I reviewed the patient's medical records. Lab Data Lab results reviewed: Yes I reviewed the patient's lab results. Labs: Lab Results 08/25/23 Range/Units 23:00 Chlamy pneumoniae PCR Not detected (Not Detect) Adenovirus (PCR) Not detected (Not Detect) B.parapertussis DNA PCR Not detected (Not Detecte) Coronavirus OC43 (PCR) Not detected (Not Detect) Coronavirus HKU1 (PCR) Not detected (Not Detect) Coronavirus 229E (PCR) Not detected (Not Detect) SARS-CoV-2 (PCR) Not detected (Not Detecte) Coronavirus NL63 (PCR) Not detected (Not Detect) Human Metapneumovir PCR Not detected (Not Detect) Influenza Type A (PCR) Not detected (Not Detect) Influenza Type B (PCR) Not detected (Not Detect) M. pneumoniae (PCR) Not detected (Not Detect) Parainfluenza 1 (PCR) Not detected (Not Detect) Parainfluenza 2 (PCR) Not detected (Not Detect) Parainfluenza 3 (PCR) Not detected (Not Detect) Parainfluenza 4 (PCR) Not detected (Not Detect) RSV (PCR) Not detected (Not Detect) Entero/Rhino (PCR) Not detected (Not Detect) Imaging Data Chest x-ray: Radiologist's Impression: PROCEDURE: XR CHEST 2V INDICATIONS: SOB TECHNIQUE: 2 views of the chest were acquired. COMPARISON: [facility], , XR CHEST 1V, 12/04/2022, 12:34. FINDINGS: Surgical changes and devices: None. Lungs and pleura: Lungs are clear. No pleural effusions or pneumothorax. Mediastinum: Mediastinal contours are normal. Heart size is normal. Bones and chest wall: No suspicious bony abnormalities. Soft tissues appear unremarkable. IMPRESSION: No acute cardiopulmonary abnormality is seen. MDM Narrative Medical decision making narrative: Lungs were clear. Not hypoxic. Not tachypneic. Chest x-ray is unremarkable. Prior to the return of her respiratory panel patient stated that she needed to leave because her was locked out of the house in the pets were inside the house. Based on her exam and her chest x-ray there was no indication for antibiotics. No effusion noted on the x-rays. Patient was instructed to contact her primary doctor for further evaluation and was given return precautions. Discharge Plan Departure Patient Disposition: Home Clinical Impression: Shortness of breath, Upper respiratory infection Instructions: DI for Viral Upper Respiratory Infection -- Adult Activity Restrictions/Additional Instructions: You did ask to leave prior to resulting of the respiratory panel. I recommend that you contact your primary doctor to follow-up with the results of this. Your chest x-ray did not show any signs of pneumonia. You can take Tylenol/ibuprofen for any fevers or body aches. Return to the emergency department for new symptoms. Prescriptions: No Action sertraline 50 mg tablet 100 mg PO DAILY Qty: 60 1RF Rx Instructions: start with 50mg qd x 1 week then increase to 100mg qd hydroxyzine HCl 25 mg tablet 25 mg PO QID Qty: 60 1RF Referrals: Myriam Thompson MD [Primary Care Provider] - Stand Alone Forms: Patient Portal/API
[2023-08-25 23:58] LABS: Adenovirus Not Detected (Not Detect); B. parapertussis Not Detected (Not Detecte); Bordetella pertussis Not Detected (Not Detect); Chlamydophila pneumoniae Not Detected (Not Detect); Coronavirus 229E Not Detected (Not Detect); Coronavirus HKU1 Not Detected (Not Detect); Coronavirus NL 63 Not Detected (Not Detect); Coronavirus OC43 Not Detected (Not Detect); Human Metapneumovirus Not Detected (Not Detect); Human Rhinovirus/Enterovirus Not Detected (Not Detect); Influenza A Not Detected (Not Detect); Influenza B Not Detected (Not Detect); Mycoplasma pneumoniae Not Detected (Not Detect); Parainfluenza Virus 1 Not Detected (Not Detect); Parainfluenza Virus 2 Not Detected (Not Detect); Parainfluenza Virus 3 Not Detected (Not Detect); Parainfluenza Virus 4 Not Detected (Not Detect); Respiratory Syncytial Virus Not Detected (Not Detect); SARS- CoV-2 Not Detected (Not Detecte)
== END 2023-08-25 23:54 | disposition home or self-care (01) ==
PROVIDERS: Emergency Provider Emergency Medicine; PCP Family Medicine
DX: J06.9 Acute upper respiratory infection, unspecified (principal); R06.02 Shortness of breath; Z20.822 Contact with and (suspected) exposure to COVID-19
CPT/HCPCS: 71046; 87633; 99282; 99283

== ENCOUNTER 2023-09-04 16:24 | Emergency (ER) | payer OTHER, MEDICAID, SELFPAY ==
[2023-09-04] VITALS (16 sets, daily range): BP systolic 110–138; BP diastolic 60–78; PULSE 74–106; RESP 16–20; TEMP 36.8; O2SAT 92–98; BMI 26.5
--- NOTE | 2023-09-04 17:59 | ED.ABDPAIN ---
HPI - Abdominal Pain General Chief Complaint: Abdominal Pain Stated Complaint: states can't breathe/chest pain/rt side flank pain Time Seen by Provider: 09/04/23 16:57 Source: patient Mode of arrival: Ambulatory History of Present Illness HPI narrative: Patient is a 43-year-old female history of asthma, presenting today with increasing shortness of breath. She was seen evaluated on August 25 with upper respiratory like symptoms. X-ray was negative viral panel was sent and is also negative. Last 3 days she has had increasing shortness of breath with exertion difficulty going up the stairs. He is some abdominal pain nausea but no vomiting. Also some right flank pain. No fever chills. She is having some right-sided chest pain mostly right under her right breast. She is here with a friend who told me that she was on Suboxone patient did not tell me she was on Suboxone apparently did is just upped her dose as well. Upon questioning patient she reports she has not on Suboxone. She was previously sober but recently relapsed. Related Data Previous Rx's Medication Instructions Recorded hydroxyzine HCl 25 mg tablet 25 mg PO QID #60 tabs 04/29/23 sertraline 50 mg tablet 100 mg (2 x 50 mg) PO DAILY #60 04/29/23 tabs amoxicillin 875 mg-potassium 1 tab PO BID #10 tabs 09/04/23 clavulanate 125 mg tablet azithromycin 250 mg tablet See Rx Instructions PO .COMPLEX #6 09/04/23 tabs Allergies Allergy/AdvReac Type Severity Reaction Status Date / Time No Known Drug Allergies Allergy Verified 04/29/23 15:10 Patient History Social History Smoking Status: Current some day smoker Tobacco: How many years used: 2 second hand exposure: Yes alcohol intake: current (1 glass of wine, 1-2x/week) substance use type: does not use Smoking Status: Current some day smoker tobacco type: vaping alcohol intake frequency: holidays/special occasions only Substance Use Type: marijuana Exam Initial Vital Signs Initial Vital Signs: Vital Signs Temperature 98.3 F 09/04/23 16:27 Pulse Rate 106 H 09/04/23 16:27 Respiratory Rate 16 09/04/23 16:27 Blood Pressure 138/73 09/04/23 16:27 Pulse Oximetry 97 09/04/23 16:27 Oxygen Delivery Method Room Air 09/04/23 16:27 GENERAL: Alert 43-year-old female appears mildly uncomfortable and in no acute distress. HEENT: Head atraumatic,EOMI, pupils reactive, face symmetric, moist mucous membranes CARDIOVASCULAR: Regular rate and rhythm without murmurs, rubs or gallops. RESPIRATORY: Breath sounds equal bilaterally, no wheezes rales or rhonchi. ABDOMEN: Soft, mild minimal periumbilical pain without guarding rebound or distention no right upper quadrant pain : Minimal right CVA tenderness EXTREMITIES: Normal range of motion, no clubbing or edema. Neurovascularly intact NEUROLOGICAL: Alert and oriented x4.Normal gait and speech. SKIN: Warm, dry, no laceration, no petechiae, no rashes or lesions. Course Orders Ordered: ED Orders 09/04/23 18:06 XR chest 1V Stat EKG-12 Lead Stat 09/04/23 18:19 Urine Culture Stat Urine Microscopic Stat 09/04/23 19:15 Complete Blood Count AUTO DIFF Stat Comprehensive Metabolic Panel Stat D Dimer Stat Lipase Stat NT-proBNP (BNP-Adult 18+) Stat Troponin & CK Cardiac Panel Stat 09/04/23 19:42 CT angio chest PE protocol Stat 09/04/23 20:10 Blood Culture Stat Lactate (Lactic Acid) Stat Procalcitonin Stat 09/04/23 20:47 Respiratory Panel (Film Array) Stat Discontinued Medications Albuterol (Albuterol Hfa Prepack) 1 box MISC DIRECTED ONE Stop: 09/04/23 21:48 Last Admin: 09/04/23 22:01 Dose: 1 box Documented By: RUFUS Albuterol/Ipratropium (Albuterol/Ipratropium 3 Ml Ampul) 3 ml INH NOW ONE Stop: 09/04/23 18:07 Last Admin: 09/04/23 18:26 Dose: 3 ml Documented By: SAT Sodium Chloride (Normal Saline 0.9%) 1,000 mls @ 1,000 mls/hr IV BOLUS ONE Stop: 09/04/23 21:13 Last Infusion: 09/04/23 21:54 Dose: Infused Documented By: Admin: 09/04/23 20:41 Dose: 1,000 mls/hr Documented By: KH Ceftriaxone Sodium 1,000 mg/ (Sodium Chloride) 100 mls @ 200 mls/hr IV NOW ONE Stop: 09/04/23 20:55 Last Infusion: 09/04/23 21:55 Dose: Infused Documented By: Admin: 09/04/23 21:07 Dose: 200 mls/hr Documented By: RUFUS Ketorolac Tromethamine (Ketorolac 30 Mg/Ml Vial) 15 mg IV NOW ONE Stop: 09/04/23 18:15 Last Admin: 09/04/23 18:30 Dose: 15 mg Documented By: RUFUS Vital Signs Vital signs: Vital Signs - 8 hr 09/04/23 16:27 09/04/23 16:51 09/04/23 17:00 Temperature 98.3 F Pulse Rate 106 H 95 H 96 H Respiratory Rate 16 Blood Pressure 138/73 Pulse Oximetry 97 97 96 Oxygen Delivery Method Room Air 09/04/23 18:02 09/04/23 18:30 09/04/23 18:50 Temperature Pulse Rate 98 H 96 H 95 H Respiratory Rate Blood Pressure Pulse Oximetry 96 96 95 Oxygen Delivery Method 09/04/23 18:50 09/04/23 18:57 09/04/23 19:00 Temperature Pulse Rate 93 H Respiratory Rate Blood Pressure 124/73 127/78 Pulse Oximetry 92 Oxygen Delivery Method 09/04/23 19:31 09/04/23 19:51 09/04/23 19:51 Temperature Pulse Rate 104 H 77 Respiratory Rate 18 Blood Pressure 115/65 Pulse Oximetry 98 95 Oxygen Delivery Method Room Air 09/04/23 20:00 09/04/23 20:00 09/04/23 20:26 Temperature Pulse Rate 83 Respiratory Rate Blood Pressure 118/65 119/68 Pulse Oximetry 96 Oxygen Delivery Method 09/04/23 20:26 09/04/23 20:30 09/04/23 20:30 Temperature Pulse Rate 81 87 Respiratory Rate 18 Blood Pressure 116/64 Pulse Oximetry 96 97 Oxygen Delivery Method 09/04/23 21:00 09/04/23 21:00 09/04/23 21:30 Temperature Pulse Rate 80 74 Respiratory Rate Blood Pressure 110/60 Pulse Oximetry 94 95 Oxygen Delivery Method 09/04/23 21:30 09/04/23 21:58 09/04/23 21:58 Temperature Pulse Rate 92 H Respiratory Rate 20 Blood Pressure 112/65 118/70 Pulse Oximetry 94 Oxygen Delivery Method MDM - Abdominal Pain Lab Data 09/04/23 19:15 09/04/23 19:15 Labs: Lab Results 09/04/23 09/04/23 09/04/23 Range/Units 18:19 19:15 20:10 WBC 7.5 (4.5-11.0) X10^3/uL RBC 4.18 (4.0-5.2) X10^6/uL Hgb 9.9 L (12.0-16.0) g/dL Hct 30.8 L (36-46) % MCV 73.6 L (80-100) fL MCH 23.7 L (26-34) PG MCHC 32.2 (30-36) % RDW 17.4 H (11.6-14.8) % Plt Count TNP Neut % (Auto) 76.6 H (50-75) % Lymph % (Auto) 11.4 L (25-40) % [place] % (Auto) 9.8 (3-14) % Eos % (Auto) 1.2 L (2-4) % Baso % (Auto) 1.0 (0-2) % Neut # (Auto) 5700 (5401-8814) /uL Lymph # (Auto) 900 L (1726-1376) /uL [place] # (Auto) 700 (0-900) /uL Eos # (Auto) 100 (0-450) /uL Baso # (Auto) 100 (0-100) /uL D-Dimer 1859 H (<500) ng/ml Sodium 133 L (137-145) mmol/L Potassium 5.6 H (3.4-5.1) mmol/L Chloride 102 (98-107) mmol/L Carbon Dioxide 26 (22-32) mmol/L BUN 10 (7-17) mg/dL Creatinine 0.41 L (0.52-1.04) mg/dL Estimated GFR > 60 (>60) mL/min BUN/Creatinine Ratio 24.4 H (6-22) Glucose 93 (70-100) mg/dL Lactate 0.8 (0.7-2.1) mmol/L Calcium 8.8 (8.4-10.2) mg/dL Total Bilirubin 1.3 (0.2-1.3) mg/dL AST 49 H (14-36) IU/L ALT 11 (<35) IU/L Alkaline Phosphatase 52 (38-126) U/L Total Creatine Kinase 53 (30-135) U/L Troponin I 0.016 (0.01-0.034) ng/mL NT-Pro-B Natriuret Pep < 20 (<125) pg/mL Total Protein 8.0 (6.3-8.2) g/dL Albumin 3.8 (3.5-5.0) g/dL Globulin 4.2 H (1.7-4.1) g/dL Albumin/Globulin Ratio 0.9 L (1.0-2.8) Lipase 52 (23-300) U/L Procalcitonin 0.06 (<0.5) ng/mL Urine RBC 0-1/hpf D (0-5/HPF) Urine WBC 5-10/hpf H (0-5/HPF) Ur Squamous Epith Cells None seen (0-5/HPF) Urine Bacteria Many (>30) H (None) Ur Culture Indicated? Specimen cultured Vol Urine Centrifuged 10ml (spun) Chlamy pneumoniae PCR (Not Detect) Adenovirus (PCR) (Not Detect) B.parapertussis DNA PCR (Not Detecte) Coronavirus OC43 (PCR) (Not Detect) Coronavirus HKU1 (PCR) (Not Detect) Coronavirus 229E (PCR) (Not Detect) SARS-CoV-2 (PCR) (Not Detecte) Coronavirus NL63 (PCR) (Not Detect) Human Metapneumovir PCR (Not Detect) Influenza Type A (PCR) (Not Detect) Influenza Type B (PCR) (Not Detect) M. pneumoniae (PCR) (Not Detect) Parainfluenza 1 (PCR) (Not Detect) Parainfluenza 2 (PCR) (Not Detect) Parainfluenza 3 (PCR) (Not Detect) Parainfluenza 4 (PCR) (Not Detect) RSV (PCR) (Not Detect) Entero/Rhino (PCR) (Not Detect) 09/04/23 Range/Units 20:47 WBC (4.5-11.0) X10^3/uL RBC (4.0-5.2) X10^6/uL Hgb (12.0-16.0) g/dL Hct (36-46) % MCV (80-100) fL MCH (26-34) PG MCHC (30-36) % RDW (11.6-14.8) % Plt Count Neut % (Auto) (50-75) % Lymph % (Auto) (25-40) % [place] % (Auto) (3-14) % Eos % (Auto) (2-4) % Baso % (Auto) (0-2) % Neut # (Auto) (7130-0370) /uL Lymph # (Auto) (5302-5985) /uL [place] # (Auto) (0-900) /uL Eos # (Auto) (0-450) /uL Baso # (Auto) (0-100) /uL D-Dimer (<500) ng/ml Sodium (137-145) mmol/L Potassium (3.4-5.1) mmol/L Chloride (98-107) mmol/L Carbon Dioxide (22-32) mmol/L BUN (7-17) mg/dL Creatinine (0.52-1.04) mg/dL Estimated GFR (>60) mL/min BUN/Creatinine Ratio (6-22) Glucose (70-100) mg/dL Lactate (0.7-2.1) mmol/L Calcium (8.4-10.2) mg/dL Total Bilirubin (0.2-1.3) mg/dL AST (14-36) IU/L ALT (<35) IU/L Alkaline Phosphatase (38-126) U/L Total Creatine Kinase (30-135) U/L Troponin I (0.01-0.034) ng/mL NT-Pro-B Natriuret Pep (<125) pg/mL Total Protein (6.3-8.2) g/dL Albumin (3.5-5.0) g/dL Globulin (1.7-4.1) g/dL Albumin/Globulin Ratio (1.0-2.8) Lipase (23-300) U/L Procalcitonin (<0.5) ng/mL Urine RBC (0-5/HPF) Urine WBC (0-5/HPF) Ur Squamous Epith Cells (0-5/HPF) Urine Bacteria (None) Ur Culture Indicated? Vol Urine Centrifuged Chlamy pneumoniae PCR Not detected (Not Detect) Adenovirus (PCR) Not detected (Not Detect) B.parapertussis DNA PCR Not detected (Not Detecte) Coronavirus OC43 (PCR) Not detected (Not Detect) Coronavirus HKU1 (PCR) Not detected (Not Detect) Coronavirus 229E (PCR) Not detected (Not Detect) SARS-CoV-2 (PCR) Not detected (Not Detecte) Coronavirus NL63 (PCR) Not detected (Not Detect) Human Metapneumovir PCR Not detected (Not Detect) Influenza Type A (PCR) Not detected (Not Detect) Influenza Type B (PCR) Not detected (Not Detect) M. pneumoniae (PCR) Not detected (Not Detect) Parainfluenza 1 (PCR) Not detected (Not Detect) Parainfluenza 2 (PCR) Not detected (Not Detect) Parainfluenza 3 (PCR) Not detected (Not Detect) Parainfluenza 4 (PCR) Not detected (Not Detect) RSV (PCR) Not detected (Not Detect) Entero/Rhino (PCR) Not detected (Not Detect) Point of care testing: Point of Care Testing Test Results Negative Urine Dip Bedside Urine Glucose Negative Bedside Urine Bilirubin - Negative Bedside Urine Ketone - Negative Urine Specific [place] 1.030 Bedside Urine Occult Blood - Negative Bedside Urine pH 6 Bedside Urine Protein - Negative Bedside Urine Nitrite + Positive Bedside Urine Leukocytes - Negative Esterase Imaging Data CT scan - chest: Radiologist's Impression: PROCEDURE: CT ANGIO CHEST PE PROTOCOL INDICATIONS: sob/nausea/high d dimer/+ pneumonia TECHNIQUE: After the administration of intravenous contrast, 2 mm thick sections acquired from the pulmonary apices to the posterior costophrenic angles. 3-dimensional maximum intensity projection (MIP) coronal and sagittal reformats were then acquired through the thorax. For radiation dose reduction, the following was used: automated exposure control, adjustment of mA and/or kV according to patient size. COMPARISON: None. FINDINGS: Image quality: Diagnostic. Pulmonary arteries: Pulmonary arteries are normal in size, and demonstrate no intraluminal filling defects to suggest central pulmonary embolism. Lower Neck: No enlarged lymph nodes. Thyroid: No thyroid nodules which require sonographic follow up, per consensus guidelines. Axillae: No enlarged lymph nodes. Chest Wall: Breast implants. Bones: Unremarkable. Lungs and Pleura: Small, loculated right-sided pleural effusion. Bibasilar ground-glass and moderate right lower lobe atelectasis. Heart: Heart size is normal. No pericardial effusion. Thoracic Vessels: No aortic aneurysm. Mediastinum and Niru: No enlarged lymph nodes. Esophagus: No wall thickening. No hiatal hernia. Debris within the esophagus, presumably reflux. Upper Abdomen: Partially visualized exophytic right renal cystic lesion without internal complexity. IMPRESSION: No pulmonary embolus. Small, loculated right-sided pleural effusion with right basilar atelectasis. Bibasilar ground-glass, either developing infection or atelectasis. Dictated by: Eliezer Blevins M.D. on 09/04/2023 at 20:59 Chest x-ray: Radiologist's Impression: PROCEDURE: XR CHEST 1V INDICATIONS: chest pain TECHNIQUE: One view of the chest was acquired. COMPARISON: [facility], , XR CHEST 1V, 12/04/2022, 12:34. FINDINGS: Surgical changes and devices: None. Lungs and pleura: Bilateral lower lobe infiltrates compatible with pneumonia. No pleural effusions or pneumothorax. Mediastinum: Mediastinal contours appear normal. Heart size is normal. Bones and chest wall: No suspicious bony lesions. Overlying soft tissues appear unremarkable. IMPRESSION: Bilateral lower lobe pneumonia. Dictated by: Avani Dorman M.D. on 09/04/2023 at 18:53 [facility] Narrative Medical decision making narrative: Patient 43-year-old female who presents today with increasing shortness of breath and right-sided pain. He is noted to be mildly tachycardic and appears to not feel well. She previously on x-ray and viral panel. Today blood work reviewed no leukocytosis she does have mild anemia with hemoglobin 9.9 hematocrit 30.8, D-dimer 1859, sodium 133, potassium 5.6, chloride 102, carbon dioxide 26, BUN 10, creatinine 0.41, lactate 0.8, troponin 0.016, procalcitonin 0.06 Chest x-ray does show pneumonia CT angio does not show pulmonary embolism but does show small loculated right-sided pleural effusion bibasilar ground-glass in her developing infection or atelectasis Patient has evidence of pneumonia on x-ray and CT with a very small loculated effusion. No evidence of sepsis she has a normal lactate normal leukocytosis. Reasonable to treat as an outpatient. She also is found to have a UTI with nitrates in her urine. She is given 1 does of Rocephin in the ED. Will put her on Augmentin and azithromycin Augmentin should treat a UTI but will also wait for culture and sensitivity Discharge Plan Departure Patient Disposition: Home Clinical Impression: Pneumonia, UTI (urinary tract infection) Instructions: DI for Pneumonia -- Adult, DI for Urinary Tract Infection (UTI) Activity Restrictions/Additional Instructions: *You have been diagnosed with pneumonia, UTI *What to do: At this time your both a bladder infection and pneumonia. This can be treated with antibiotics. *Continue to take medications as directed Augmentin 875 twice a day for 5 days Azithromycin take as directed for 5 days Motrin 600 mg every 6 hours if needed for [id number] pain Tylenol 1000 mg every 6 hours if needed for [id number] *Follow up with your primary care provider in 2-3 days or call [phone] *Return to ER if you should have increasing pain fever shortness of breath or any new, worsening or concerning symptoms Prescriptions: New azithromycin 250 mg tablet See Rx Instructions PO .COMPLEX Qty: 6 0RF Rx Instructions: For 250 mg dose pack: take 500 mg today (day 1), then 250 mg for 4 days (days 2-5) amoxicillin-pot clavulanate 875-125 mg tablet 1 tab PO BID Qty: 10 0RF No Action sertraline 50 mg tablet 100 mg PO DAILY Qty: 60 1RF Rx Instructions: start with 50mg qd x 1 week then increase to 100mg qd hydroxyzine HCl 25 mg tablet 25 mg PO QID Qty: 60 1RF Referrals: Myriam Thompson MD [Primary Care Provider] - Stand Alone Forms: Patient Portal/API
--- NOTE | 2023-09-04 18:06 | DI.RAD.S_ITS ---
PROCEDURE: XR CHEST 1V INDICATIONS: chest pain TECHNIQUE: One view of the chest was acquired. COMPARISON: [facility], CR, XR CHEST 1V, 12/04/2022, 12:34. FINDINGS: Surgical changes and devices: None. Lungs and pleura: Bilateral lower lobe infiltrates compatible with pneumonia. No pleural effusions or pneumothorax. Mediastinum: Mediastinal contours appear normal. Heart size is normal. Bones and chest wall: No suspicious bony lesions. Overlying soft tissues appear unremarkable. IMPRESSION: Bilateral lower lobe pneumonia. Dictated by: Avani Dorman M.D. on 09/04/2023 at 18:53 Approved by: Avani Dorman M.D. on 09/04/2023 at 18:53
[2023-09-04] MEDS: ALBUTEROL/IPRATROPIUM 3 ML AMPUL INH (18:26)
[2023-09-04] MEDS: KETOROLAC 30 MG/ML VIAL 15 MG IV (18:30)
[2023-09-04 19:05] LABS: Bacteria Urine Many (>30); Culture Indicated Urine Specimen Cultured; RBC Urine 0-1/HPF (0-5/HPF); Squamous Epithelial Cell Urine None Seen (0-5/HPF); Urine Volume 10mL (spun); WBC Urine 5-10/HPF (0-5/HPF)
[2023-09-04 19:30] LABS: Add Manual Diff / Slide Review NO; Basophils Absolute Auto 100 /uL (0-100); Eosinophils Absolute Auto 100 /uL (0-450); Eosinophils Percent Auto 1.2 % (2-4); Hematocrit 30.8 % (36-46); Hemoglobin 9.9 g/dL (12.0-16.0); Lymphocytes Absolute Auto 900 /uL (1100-4500); Lymphocytes Percent Auto 11.4 % (25-40); Mean Corpuscular HGB Conc 32.2 % (30-36); Mean Corpuscular Hemoglobin 23.7 PG (26-34); Mean Corpuscular Volume 73.6 fL (80-100); Monocytes Absolute Auto 700 /uL (0-900); Monocytes Percent Auto 9.8 % (3-14); Neutrophils Absolute Auto 5700 /uL (1500-7000); Neutrophils Percent Auto 76.6 % (50-75); Red Blood Cell Count 4.18 X10^6/uL (4.0-5.2); Red Cell Distribution Width 17.4 % (11.6-14.8); White Blood Cell Count 7.5 X10^3/uL (4.5-11.0)
[2023-09-04 19:33] LABS: D Dimer 1859 ng/ml (<500)
[2023-09-04 19:38] LABS: Alanine Aminotransferase 11 IU/L (<35); Albumin 3.8 g/dL (3.5-5.0); Albumin Globulin Ratio 0.9 (1.0-2.8); Alkaline Phosphatase 52 U/L (38-126); Aspartate Aminotransferase 49 IU/L (14-36); BUN Creatinine Ratio 24.4 (6-22); Bilirubin Total 1.3 mg/dL (0.2-1.3); Blood Urea Nitrogen 10 mg/dL (7-17); Calcium 8.8 mg/dL (8.4-10.2); Carbon Dioxide 26 mmol/L (22-32); Chloride 102 mmol/L (98-107); Creatine Kinase 53 U/L (30-135); Estimated Glomerular Filt Rate > 60 mL/min (>60); Globulin 4.2 g/dL (1.7-4.1); Glucose 93 mg/dL (70-100); Lipase 52 U/L (23-300); Sodium 133 mmol/L (137-145)
[2023-09-04 19:42] LABS: HEMOLYSIS 307 (0-50); Potassium 5.6 mmol/L (3.4-5.1)
--- NOTE | 2023-09-04 19:42 | DI.CT.S_ITS ---
PROCEDURE: CT ANGIO CHEST PE PROTOCOL INDICATIONS: sob/nausea/high d dimer/+ pneumonia TECHNIQUE: After the administration of intravenous contrast, 2 mm thick sections acquired from the pulmonary apices to the posterior costophrenic angles. 3-dimensional maximum intensity projection (MIP) coronal and sagittal reformats were then acquired through the thorax. For radiation dose reduction, the following was used: automated exposure control, adjustment of mA and/or kV according to patient size. COMPARISON: None. FINDINGS: Image quality: Diagnostic. Pulmonary arteries: Pulmonary arteries are normal in size, and demonstrate no intraluminal filling defects to suggest central pulmonary embolism. Lower Neck: No enlarged lymph nodes. Thyroid: No thyroid nodules which require sonographic follow up, per consensus guidelines. Axillae: No enlarged lymph nodes. Chest Wall: Breast implants. Bones: Unremarkable. Lungs and Pleura: Small, loculated right-sided pleural effusion. Bibasilar ground-glass and moderate right lower lobe atelectasis. Heart: Heart size is normal. No pericardial effusion. Thoracic Vessels: No aortic aneurysm. Mediastinum and Niru: No enlarged lymph nodes. Esophagus: No wall thickening. No hiatal hernia. Debris within the esophagus, presumably reflux. Upper Abdomen: Partially visualized exophytic right renal cystic lesion without internal complexity. IMPRESSION: No pulmonary embolus. Small, loculated right-sided pleural effusion with right basilar atelectasis. Bibasilar ground-glass, either developing infection or atelectasis. Dictated by: Eliezer Blevins M.D. on 09/04/2023 at 20:59 Approved by: Eliezer Blevins M.D. on 09/04/2023 at 21:02
[2023-09-04 19:47] LABS: NT-proBNP (BNP-Adult 18+) < 20 pg/mL (<125)
[2023-09-04 19:50] LABS: Troponin I 0.016 ng/mL (0.01-0.034)
[2023-09-04 20:31] LABS: Lactate (Lactic Acid) 0.8 mmol/L (0.7-2.1)
[2023-09-04] MEDS: SODIUM CHLORIDE 0.9% 1,000 ML 1000 ML IV (20:41)
[2023-09-04 20:48] LABS: Procalcitonin 0.06 ng/mL (<0.5)
[2023-09-04] MEDS: cefTRIAXone 1,000 MG in SODIUM CHLORIDE 0.9% 100 ML 200 MG IV (21:07)
[2023-09-04 21:36] LABS: Adenovirus Not Detected (Not Detect); B. parapertussis Not Detected (Not Detecte); Bordetella pertussis Not Detected (Not Detect); Chlamydophila pneumoniae Not Detected (Not Detect); Coronavirus 229E Not Detected (Not Detect); Coronavirus HKU1 Not Detected (Not Detect); Coronavirus NL 63 Not Detected (Not Detect); Coronavirus OC43 Not Detected (Not Detect); Human Metapneumovirus Not Detected (Not Detect); Human Rhinovirus/Enterovirus Not Detected (Not Detect); Influenza A Not Detected (Not Detect); Influenza B Not Detected (Not Detect); Mycoplasma pneumoniae Not Detected (Not Detect); Parainfluenza Virus 1 Not Detected (Not Detect); Parainfluenza Virus 2 Not Detected (Not Detect); Parainfluenza Virus 3 Not Detected (Not Detect); Parainfluenza Virus 4 Not Detected (Not Detect); Respiratory Syncytial Virus Not Detected (Not Detect); SARS- CoV-2 Not Detected (Not Detecte)
[2023-09-04] MEDS: ALBUTEROL HFA PREPACK 1 BOX MISC (22:01)
== END 2023-09-04 22:08 | disposition home or self-care (01) ==
PROVIDERS: Emergency Provider Emergency Medicine; PCP Family Medicine
DX: J18.9 Pneumonia, unspecified organism (principal); R07.9 Chest pain, unspecified; N39.0 Urinary tract infection, site not specified; Z20.822 Contact with and (suspected) exposure to COVID-19
CPT/HCPCS: 36415; 71045; 71275; 80053; 81003; 81015; 81025; 82550; 83605; 83690; 83880; 84145; 84484; 85025; 85379; 87040; 87077; 87086; 87186; 87633; 94640; 96365; 96375; 99284; 99285; J0696; J1885; Q9967

== ENCOUNTER 2024-03-02 17:58 | Emergency (ER) | payer OTHER, MEDICAID, SELFPAY ==
[2024-03-02] VITALS (11 sets, daily range): BP systolic 94–128; BP diastolic 53–82; PULSE 69–89; RESP 8–60; TEMP 36.7; O2SAT 95–100; BMI 26.5
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
--- NOTE | 2024-03-02 19:03 | DI.US.S_ITS ---
PROCEDURE: US PELVIC COMPLETE INDICATIONS: heavy vaginal bleeding TECHNIQUE: Real-time scanning was performed of the pelvic organs, with image documentation. Additional endovaginal scanning was necessary due to incomplete visualization of the adnexal and endometrial structures by transabdominal scanning. COMPARISON: None. FINDINGS: Uterus: Uterus is anteverted and enlarged at 15.9 x 11.4 x 8.7 cm. The myometrium is heterogeneous and contains large fibroids. The endometrium is not well visualized. Ovaries: The right ovary measures 3.4 x 3.0 x 2.3 cm, with a calculated ovarian volume of 12.3 cc. Patient terminated the is and prior to the left ovary being evaluated. Right ovary appears normal. Other: No pathologic free abdominal or pelvic fluid. IMPRESSION: Uterus is enlarged by multiple large fibroids. Patient terminated the exam early before additional evaluation could be performed. Approved by: Haja Forman M.D. on 03/02/2024 at 21:55
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
[2024-03-02 20:50] LABS: Add Manual Diff / Slide Review NO; Basophils Absolute Auto 0 /uL (0-100); Basophils Percent Auto 0.9 % (0-2); Eosinophils Absolute Auto 100 /uL (0-450); Eosinophils Percent Auto 3.1 % (2-4); Hematocrit 29.3 % (36-46); Hemoglobin 9.3 g/dL (12.0-16.0); Lymphocytes Absolute Auto 1300 /uL (1100-4500); Lymphocytes Percent Auto 33.6 % (25-40); Mean Corpuscular HGB Conc 31.6 % (30-36); Mean Corpuscular Volume 69.7 fL (80-100); Monocytes Absolute Auto 400 /uL (0-900); Monocytes Percent Auto 10.1 % (3-14); Neutrophils Absolute Auto 1900 /uL (1500-7000); Neutrophils Percent Auto 52.3 % (50-75); Platelet Count 323 X10^3/uL (150-400); Red Blood Cell Count 4.21 X10^6/uL (4.0-5.2); Red Cell Distribution Width 17.3 % (11.6-14.8); White Blood Cell Count 3.7 X10^3/uL (4.5-11.0)
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
--- NOTE | 2024-03-02 21:00 | PC.NURSE ---
Pt in US. Staff assist called to room. Pt was passing out. Moved to room 5. Pt awake and drowsy. Answers questions appropriately.
[2024-03-02 21:02] LABS: Blood Urea Nitrogen 11 mg/dL (7-17); Calcium 8.1 mg/dL (8.4-10.2); Carbon Dioxide 25 mmol/L (22-32); Chloride 106 mmol/L (98-107); Estimated Glomerular Filt Rate > 60 mL/min (>60); Glucose 103 mg/dL (70-100); HEMOLYSIS < 15 (0-50); Potassium 3.8 mmol/L (3.4-5.1); Sodium 137 mmol/L (137-145)
[2024-03-02 21:15] LABS: Pregnancy Test Serum,Qual Negative (Negative)
[2024-03-02] MEDS: SODIUM CHLORIDE 0.9% 1,000 ML 1000 ML IV (21:15)
[2024-03-02 21:33] LABS: RBC Urine 10-30/HPF (0-5/HPF); Urine Volume 10mL (spun)
[2024-03-02 21:34] LABS: Bacteria Urine Many (>30); Culture Indicated Urine Specimen Cultured; Squamous Epithelial Cell Urine None Seen (0-5/HPF); WBC Urine 5-10/HPF (0-5/HPF)
[2024-03-02 21:35] LABS: Ictotest Urine Positive (Negative)
[2024-03-02] MEDS: cefTRIAXone 1,000 MG in SODIUM CHLORIDE 0.9% 100 ML 200 MG IV (22:39)
[2024-03-02 22:55] LABS: Hematocrit 26.6 % (36-46); Hemoglobin 8.4 g/dL (12.0-16.0)
[2024-03-02] MEDS: SODIUM CHLORIDE 0.9% 1,000 ML 125 ML IV (23:27)
[2024-03-02 23:41] LABS: Anisocytosis 1+; Microcytosis 1+; Platelet Estimate Adequate on smear
--- NOTE | 2024-03-02 23:41 | PC.NURSE ---
Pt refusing IV placement. Wants to find her dog. Dr Ott notified.
[2024-03-02 23:53] LABS: Urine N gonorrhoeae NOT DETECTED
[2024-03-03 00:06] LABS: Urine Chlamydia NOT DETECTED
--- NOTE | 2024-03-03 00:29 | PC.NURSE ---
Pt wants to leave to find her dog. Dr Ott notified. in room discussing plan of care with patient. Pt understands and wants to go home.
[2024-03-03 00:38] VITALS: BP 102/75; PULSE 78; RESP 18; TEMP 36.9; O2SAT 98
== END 2024-03-03 00:40 | disposition left against medical advice (07) ==
LOC: ED 20:43 → AC 03-03 00:28 → ED 03-03 00:32
PROVIDERS: Emergency Provider Emergency Medicine; Referring Provider Emergency Medicine
DX: D25.9 Leiomyoma of uterus, unspecified (principal); D64.9 Anemia, unspecified; R55 Syncope and collapse
CPT/HCPCS: 36415; 76856; 80048; 81003; 81015; 81025; 84703; 85014; 85018; 85025; 86850; 86900; 86901; 87086; 87491; 87591; 96361; 96365; 99284; J0696

== ENCOUNTER 2024-03-03 14:49 | Inpatient (IN) | payer OTHER, MEDICAID, SELFPAY ==
[2024-03-03 14:52] VITALS: BP 128/85; PULSE 94; RESP 20; TEMP 36.2; O2SAT 98; BMI 26.5
[2024-03-03 16:03] VITALS: BP 99/55; PULSE 82; O2SAT 98
--- NOTE | 2024-03-03 16:11 | EKG_ITS ---
[address] [address] Test Date: 2024-03-03 Pat Name: Radha Arias Department: [facility] Room: Gender: Female Netez[employer] Developer: GENEVA : 1980 Requested By: Order Number: [id number] Reading MD: Donovan Beard Measurements Intervals [place] Rate: 81 P: 70 LA: 158 QRS: 65 QRSD: 86 T: 76 QT: 398 QTc: 462 Interpretive Statements Normal sinus rhythm Electronically Signed On 03-05-2024 18:27:25 PDT by Donovan Beard
[2024-03-03 16:30] VITALS: BP 108/70; PULSE 80; O2SAT 94
[2024-03-03 16:31] LABS: Basophils Absolute Auto 0 /uL (0-100); Basophils Percent Auto 0.6 % (0-2); Eosinophils Absolute Auto 100 /uL (0-450); Eosinophils Percent Auto 4.2 % (2-4); Hematocrit 26.2 % (36-46); Hemoglobin 8.3 g/dL (12.0-16.0); Lymphocytes Absolute Auto 1100 /uL (1100-4500); Lymphocytes Percent Auto 35.7 % (25-40); Mean Corpuscular HGB Conc 31.5 % (30-36); Mean Corpuscular Hemoglobin 21.9 PG (26-34); Mean Corpuscular Volume 69.4 fL (80-100); Monocytes Absolute Auto 300 /uL (0-900); Monocytes Percent Auto 11.8 % (3-14); Neutrophils Absolute Auto 1400 /uL (1500-7000); Neutrophils Percent Auto 47.7 % (50-75); Platelet Count 290 X10^3/uL (150-400); Red Blood Cell Count 3.78 X10^6/uL (4.0-5.2); Red Cell Distribution Width 17.4 % (11.6-14.8); White Blood Cell Count 2.9 X10^3/uL (4.5-11.0)
[2024-03-03 16:39] LABS: Add Manual Diff / Slide Review SLIDE REVIEW
[2024-03-03 16:42] LABS: Alanine Aminotransferase 11 IU/L (<35); Albumin 3.4 g/dL (3.5-5.0); Albumin Globulin Ratio 1.2 (1.0-2.8); Alkaline Phosphatase 56 U/L (38-126); Aspartate Aminotransferase 18 IU/L (14-36); BUN Creatinine Ratio 20.4 (6-22); Bilirubin Total 0.2 mg/dL (0.2-1.3); Blood Urea Nitrogen 11 mg/dL (7-17); Calcium 7.9 mg/dL (8.4-10.2); Carbon Dioxide 23 mmol/L (22-32); Chloride 109 mmol/L (98-107); Estimated Glomerular Filt Rate > 60 mL/min (>60); Globulin 2.9 g/dL (1.7-4.1); Glucose 105 mg/dL (70-100); HEMOLYSIS < 15 (0-50); Potassium 3.7 mmol/L (3.4-5.1); Sodium 136 mmol/L (137-145); Total Protein 6.3 g/dL (6.3-8.2)
[2024-03-03 16:56] LABS: Anisocytosis 1+
[2024-03-03 16:57] LABS: Hypochromasia 1+; Microcytosis 2+
[2024-03-03 17:00] VITALS: BP 116/71; PULSE 82; O2SAT 96
--- NOTE | 2024-03-03 17:21 | ED.GENADULT ---
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 Patient was seen yesterday was recommended to stay left against medical advice but has had persistent vaginal bleeding for several months. She states it is like having 3 periods monthly. Sometimes going through quite a few pads. She states she was gone through 4 pads today. She states she has had chronic lower abdominal pain and cramping. No fevers, she gets dizzy and lightheaded, no chest pain or shortness of breath. She does sometimes have nausea. Denies any issues with bowel movements. States history of C-sections but no other prior surgery. States she was supposed to follow up with [facility] to have treatment for her fibroids but had transportation issue with was not able to follow up. She does smoke daily, vapes tobacco, occasional alcohol uses marijuana. Was on methadone until recently when she missed too many appointments with the [facility]. Related Data Previous Rx's Medication Instructions Recorded hydroxyzine HCl 25 mg tablet 25 mg PO QID #60 tabs 04/29/23 sertraline 50 mg tablet 100 mg (2 x 50 mg) PO DAILY #60 04/29/23 tabs amoxicillin 875 mg-potassium 1 tab PO BID #10 tabs 09/04/23 clavulanate 125 mg tablet azithromycin 250 mg tablet See Rx Instructions PO .COMPLEX #6 09/04/23 tabs Allergies Allergy/AdvReac Type Severity Reaction Status Date / Time No Known Drug Allergies Allergy Verified 04/29/23 15:10 Review of Systems Review of Systems ROS Unobtainable: All systems reviewed & are unremarkable except as noted in HPI and below Patient History Social History Smoking Status: Current some day smoker Tobacco: How many years used: 2 second hand exposure: Yes alcohol intake: current (1 glass of wine, 1-2x/week) substance use type: does not use Smoking Status: Current some day smoker tobacco type: vaping alcohol intake frequency: holidays/special occasions only Substance Use Type: marijuana and prescription drug Exam Narrative Exam Narrative: GENERAL: Alert and oriented x three, female in distress. Patient appears pale. HEENT: Head normocephalic, atraumatic, EOMI, pupils reactive, face symmetric, moist mucous membranes NECK: Supple, full range of motion CARDIOVASCULAR: Regular rate and rhythm without murmurs, rubs or gallops. RESPIRATORY: Breath sounds equal bilaterally, no wheezes rales or rhonchi. ABDOMEN: Soft, nontender. Normoactive bowel sounds all 4 quadrants. No guarding or rebound, rigidity, no mass : No CVA tenderness. Female: externa vaginal exam is normal, patient was slow ooze of dark blood from the cervix, no discharge, no cervical motion tenderness, normal speculum exam, no adnexal tenderness/mass. Bimanual exam is normal, no enlarged or tender uterus. Non-gravid. EXTREMITIES: Normal range of motion, no clubbing or edema. Neurovascularly intact NEUROLOGICAL: Cranial nerves II through XII grossly intact. Moving all extremities SKIN: Warm, dry, no petechiae, no rashes or lesions. Initial Vital Signs Initial Vital Signs: Vital Signs Temperature 97.2 F L 03/03/24 14:52 Pulse Rate 94 H 03/03/24 14:52 Respiratory Rate 20 03/03/24 14:52 Blood Pressure 128/85 03/03/24 14:52 Pulse Oximetry 98 03/03/24 14:52 Oxygen Delivery Method Room Air 03/03/24 14:52 Course Orders Ordered: ED Orders 03/03/24 15:53 EKG-12 Lead Stat 03/03/24 16:16 CBC Auto Diff [Complete Blood Count AUTO DIFF] Stat CMP [Comprehensive Metabolic Panel] Stat Test Serum,Qual Stat Type and Screen Stat Lactated Ringer's (Lactated Ringers) 1,000 mls @ 150 mls/hr IV CONT ANTOINETTE Discontinued Medications Nicotine (Nicotine 21 Mg Patch) 21 mg TOP NOW ONE Stop: 03/03/24 18:26 Vital Signs Vital signs: Vital Signs - 8 hr 03/03/24 14:52 03/03/24 16:03 03/03/24 16:03 Temperature 97.2 F L Pulse Rate 94 H 82 Respiratory Rate 20 Blood Pressure 128/85 99/55 L Pulse Oximetry 98 98 Oxygen Delivery Method Room Air 03/03/24 16:30 03/03/24 16:30 03/03/24 17:00 Temperature Pulse Rate 80 82 Respiratory Rate Blood Pressure 108/70 Pulse Oximetry 94 96 Oxygen Delivery Method Room Air 03/03/24 17:00 Temperature Pulse Rate Respiratory Rate Blood Pressure 116/71 Pulse Oximetry Oxygen Delivery Method Medical Decision Making Lab Data 03/03/24 16:16 03/03/24 16:16 Labs: Lab Results 03/03/24 Range/Units 16:16 WBC 2.9 L (4.5-11.0) X10^3/uL RBC 3.78 L (4.0-5.2) X10^6/uL Hgb 8.3 L (12.0-16.0) g/dL Hct 26.2 L (36-46) % MCV 69.4 L (80-100) fL MCH 21.9 L (26-34) PG MCHC 31.5 (30-36) % RDW 17.4 H (11.6-14.8) % Plt Count 290 (150-400) X10^3/uL Neut % (Auto) 47.7 L (50-75) % Lymph % (Auto) 35.7 (25-40) % [place] % (Auto) 11.8 (3-14) % Eos % (Auto) 4.2 H (2-4) % Baso % (Auto) 0.6 (0-2) % Neut # (Auto) 1400 L (9409-2282) /uL Lymph # (Auto) 1100 (1729-9320) /uL [place] # (Auto) 300 (0-900) /uL Eos # (Auto) 100 (0-450) /uL Baso # (Auto) 0 (0-100) /uL RBC Morphology See below Hypochromasia 1+ H Anisocytosis 1+ H Microcytosis 2+ H Sodium 136 L (137-145) mmol/L Potassium 3.7 (3.4-5.1) mmol/L Chloride 109 H (98-107) mmol/L Carbon Dioxide 23 (22-32) mmol/L BUN 11 (7-17) mg/dL Creatinine 0.54 (0.52-1.04) mg/dL Estimated GFR > 60 (>60) mL/min BUN/Creatinine Ratio 20.4 (6-22) Glucose 105 H (70-100) mg/dL Calcium 7.9 L (8.4-10.2) mg/dL Total Bilirubin 0.2 (0.2-1.3) mg/dL AST 18 (14-36) IU/L ALT 11 (<35) IU/L Alkaline Phosphatase 56 (38-126) U/L Total Protein 6.3 (6.3-8.2) g/dL Albumin 3.4 L (3.5-5.0) g/dL Globulin 2.9 (1.7-4.1) g/dL Albumin/Globulin Ratio 1.2 (1.0-2.8) Serum , Qual Negative (Negative) Blood Type A Positive Antibody Screen Negative Imaging Data US - EVENT MARKETING MANAGER: Radiologist's Impression: [address] [address] Ultrasound Report Signed Patient: Radha Arias MR#: [id number] : 1980 Acct:[id number] Age/Sex: 44 / F Date of Service: 03/02/24 Loc: ED Accession Number: [id number] Procedure: US pelvic complete Ordering Provider: Beverley Ott D.O. PROCEDURE: US PELVIC COMPLETE INDICATIONS: heavy vaginal bleeding TECHNIQUE: Real-time scanning was performed of the pelvic organs, with image documentation. Additional endovaginal scanning was necessary due to incomplete visualization of the adnexal and endometrial structures by transabdominal scanning. COMPARISON: None. FINDINGS: Uterus: Uterus is anteverted and enlarged at 15.9 x 11.4 x 8.7 cm. The myometrium is heterogeneous and contains large fibroids. The endometrium is not well visualized. Ovaries: The right ovary measures 3.4 x 3.0 x 2.3 cm, with a calculated ovarian volume of 12.3 cc. Patient terminated the is and prior to the left ovary being evaluated. Right ovary appears normal. Other: No pathologic free abdominal or pelvic fluid. IMPRESSION: Uterus is enlarged by multiple large fibroids. Patient terminated the exam early before additional evaluation could be performed. Approved by: Haja Forman M.D. on 03/02/2024 at 21:55 ECG Data Attestation: I personally reviewed and interpreted this ECG as follows: Interpretation: Sinus rhythm rate 81 OH 158 QRS 86 QTC of 462, no acute ST elevation depression noted. MDM Narrative Medical decision making narrative: Patient has a white count of 3.7 yesterday is 2.9 today, hemoglobin was 9.3 had a repeat at 8.4 about 2 hours after in his 8.3 today. Patient was hemoglobin of 9.9 in September 2023. She was microcytosis on all those labs. Electrolytes are overall relatively appropriate sodium 136 potassium 3.7 chloride of 109 CO2 of 23 BUN of 11 with a creatinine 0.54, glucose of 1 0 calcium is 7.9, LFTs are negative. Bilirubin is 0.2 Patient had test in the last 12 hours. Serum preg is negative. Patient's exam patient has some slow ooze but no brisk bleeding. No syncope here in the department but noted 2 episodes at minimum yesterday. There was discussion about admission yesterday patient has been appropriate vital signs. She has had a syncopal episode. Patient has ambulated to the bathroom several times in the department. Spoke with Dr. Platt, she was aware of patient from yesterday. Discussed patient's finals has been more appropriate today does report more pulled syncopal episodes. Plan for oz, NPO maintenance fluids with goal of surgery tomorrow. Did discuss with patient she states she is willing to stay for surgery prior to talking to OBGYN. Discharge Plan Departure Patient Disposition: Admitted as Observation Clinical Impression: Vaginal bleeding, Syncope, Symptomatic anemia Admit Date/Time: 03/03/24 18:21 Admit Provider: Isabella Platt
[2024-03-03 17:38] LABS: Pregnancy Test Serum,Qual Negative (Negative)
--- NOTE | 2024-03-03 17:52 | PC.NURSE ---
Pelvic exam preformed by Dr. Islas and chaperoned by me
[2024-03-03] MEDS: NICOTINE 21 MG PATCH TOP (18:44)
[2024-03-03 18:55] VITALS: BMI 28.7
[2024-03-03 19:12] VITALS: BP 118/79; PULSE 85; RESP 17; TEMP 36.7; O2SAT 100
[2024-03-03] MEDS: LACTATED RINGERS 1,000 ML 150 ML IV (20:29)
[2024-03-03] MEDS: IBUPROFEN 400 MG TABLET PO (20:38)
--- NOTE | 2024-03-03 21:05 | PC.NURSE ---
PATIENT STATES NO HOME MEDS CURRENTLY
[2024-03-04] VITALS (13 sets, daily range): BP systolic 94–138; BP diastolic 58–85; PULSE 71–91; RESP 12–19; TEMP 36–37.2; O2SAT 95–100; BMI 28.7
--- NOTE | 2024-03-04 | PATH_ITS ---
[facility] Accession Number: [id number] No. of containers..01 Tissue . 01 Material submitted: . uterus - UTERUS AND BILATERAL FALLOPIAN TUBES . 01 Diagnosis: A. UTERINE CERVIX AND BILATERAL FALLOPIAN TUBES, SUPRACERVICAL HYSTERECTOMY AND BILATERAL SALPINGECTOMY: Myometrium with multiple benign leiomyomas (up to 9.4 cm) with degenerative hyalinization/infarct type changes. Myometrium with adenomyosis. Benign weakly proliferative endometrium. Cross-sections of bilateral fallopian tubes with benign paratubal cysts and hydrosalpinx. No evidence of dysplasia or malignancy. [facility] 03/07/2024 1139 Local . 01 Electronically signed: . Robina Ely MD, Pathologist NPI- [id number] . 01 Gross description: . Received in formalin, labeled with two identifiers and uterus and bilateral fallopian tubes, is an intact supracervical hysterectomy (1019 g, 16.7 superior to inferior, 11.2 cm medial to lateral, 8.6 cm anterior to posterior). The uterus is enlarged and distorted, but presumed orientation could be determined by the serosal reflections. The attached presumed left fallopian tube measures 6.8 x 0.9 cm, and the detached presumed right fallopian tube measures 4.0 x 0.6 cm. No cervix or additional adnexa are identified. The serosa is pink-serrano and smooth with the anterior inked blue and the posterior inked black. The portion of endocervical canal measures 2.4 cm in length and has serrano, hair-bearing mucosa. The endometrial cavity is distorted by multiple white, whorled nodules and measures 8.7 cm from cornu to cornu, 4.7 cm in length with serrano, velvety endometrium that averages less than 0.1 cm thick. The myometrium is serrano and moderately trabecular with numerous white, whorled nodules located subserosally and intramurally, ranging from 0.3 cm to 9.4 cm in greatest dimension. No hemorrhage or necrosis is identified. The myometrium measures up to 3.2 cm in maximum thickness. . Both tubes have serrano, smooth serosa with cysts ranging from 0.1 cm to 0.5 cm in greatest dimension, filled with clear serous fluid. The lumen are stellate and unremarkable. . Mold Blower sections are submitted as follows: A1: Anterior cervical canal. A2: Posterior cervical canal. A3: Anterior full-thickness section. A4: Posterior full-thickness section. A5-A6: Mold Blower nodules. A7: Presumed left fallopian tube to include one-half of bisected fimbriae and cross sections. A8: Presumed right fallopian tube to include one-half of bisected fimbriae and cross sections. ([id number]) /FRR 03/05/2024 [facility]7 Local . 01 Pathologist provided ICD-10: N93.9, D25.0 . 01 CPT . 172826 Specimen Comment: A courtesy copy of this report has been sent to [facility] Pathology Performed at: [address] [address], [place], [place] [id number] MD Naveen Dominguez MD Phone: [phone]
[2024-03-04] MEDS: LACTATED RINGERS 1,000 ML 150 ML IV (02:58)
[2024-03-04] MEDS: CEFAZOLIN 2 GM/100 ML PREMIX 100 ML IV ×2 (08:50→11:20)
--- NOTE | 2024-03-04 09:01 | PM.GYNHP.1 ---
History of Present Illness History of Present Illness Reason for admission: vaginal bleeding Narrative: Radha Arias is a 44 year old female with history of heavy menstrual bleeding, admitted from the ER for acute episode of heavy vaginal bleeding this week. She reports extremely heavy flow, with passage of clots. She reports having passed out yesterday as well. She has a known enlarged fibroid uterus, and is ready to have surgery at this point. She is status post tubal ligation in the past, and does not desire future fertility. [facility] Medical History (Updated 03/04/24 @ 09:13 by Isabella Platt DO) History of drug abuse Anemia Insomnia Uterine leiomyoma Menorrhagia with regular cycle Panic attacks (2003) Anxiety (2003) Depression (2003) Surgical History (Updated 03/04/24 @ 09:04 by Isabella Platt DO) Status post tubal ligation History of 2 sections Social History household members: none and other Smoking Status: Current some day smoker Tobacco: How many years used: 2 second hand exposure: Yes alcohol intake: current substance use type: does not use Meds Home Medications and Allergies Home Medications Medication Instructions Recorded Confirmed Type No Known Home Medications 03/03/24 03/03/24 History Allergies Allergy/AdvReac Type Severity Reaction Status Date / Time No Known Drug Allergies Allergy Verified 04/29/23 15:10 Review of Systems Review of Systems ROS: Yes All systems reviewed with the patient and are negative except as otherwise documented Exam Vital Signs (past 8 hours): - 03/04/24 07:00 Oxygen Delivery Method Room Air Oxygen Delivery Method Room Air BP 118/79, P 85, R 17, T 98.1 Const General: comfortable and No acute distress Resp Effort & Inspection: normal respiratory effort and able to speak in complete sentences GI Palpation: soft and No guarding Other: Nontender, fibroid uterus palpable at U -3cm Other: Deferred Neuro Cognition: normal cognition Speech: speech normal Extrem General: normal to inspection Psych Mood: congruent mood Affect: normal affect Objective Imaging US - abdomen: Radiologist's impression: INDICATIONS: heavy vaginal bleeding TECHNIQUE: Real-time scanning was performed of the pelvic organs, with image documentation. Additional endovaginal scanning was necessary due to incomplete visualization of the adnexal and endometrial structures by transabdominal scanning. COMPARISON: None. FINDINGS: Uterus: Uterus is anteverted and enlarged at 15.9 x 11.4 x 8.7 cm. The myometrium is heterogeneous and contains large fibroids. The endometrium is not well visualized. Ovaries: The right ovary measures 3.4 x 3.0 x 2.3 cm, with a calculated ovarian volume of 12.3 cc. Patient terminated the is and prior to the left ovary being evaluated. Right ovary appears normal. Other: No pathologic free abdominal or pelvic fluid. IMPRESSION: Uterus is enlarged by multiple large fibroids. Patient terminated the exam early before additional evaluation could be performed. Approved by: Haja Forman M.D. on 03/02/2024 at 21:55 INDICATIONS: BLEEDING TECHNIQUE: Real-time scanning was performed of the pelvic organs, with image documentation. Additional endovaginal scanning was necessary due to incomplete visualization of the adnexal and endometrial structures by transabdominal scanning. COMPARISON: No pertinent prior study. FINDINGS: Uterine body is markedly enlarged measuring 9.0 x 11.2 x 17 cm. Multiple uterine fibroids present. Largest fibroid measures 9 cm. Detailed characterization of the fibroids is limited due to the large size and overall market enlargement of uterus with limited sonographic windows. Endometrium is largely obscured by the fibroids. Neither ovary identified IMPRESSION: Markedly enlarged multi fibroid uterus. Nonemergent MR evaluation recommended if results would impact management. We strive to produce accurate, complete, and clear reports of imaging services. To assist us in improving patient care, this report was composed using standard report templates and voice recognition software. Therefore, it may contain abnormal punctuation, insertions and/or omissions. Occasional wrong-word or sound-alike substitutions may occur. Though we review the report and make efforts to correct it, we do recommend that the report be read carefully in proper context to recognize any text inaccuracies. Dictated by: Torres Lester M.D. on 02/26/2022 at 0:11 Approved by: Torres Lester M.D. on 02/26/2022 at 0:12 Labs 03/03/24 16:16 03/03/24 16:16 Labs: Laboratory Results - last 24 hr 03/03/24 16:16 WBC 2.9 L RBC 3.78 L Hgb 8.3 L Hct 26.2 L MCV 69.4 L MCH 21.9 L MCHC 31.5 RDW 17.4 H Plt Count 290 Neut % (Auto) 47.7 L Lymph % (Auto) 35.7 [place] % (Auto) 11.8 Eos % (Auto) 4.2 H Baso % (Auto) 0.6 Neut # (Auto) 1400 L Lymph # (Auto) 1100 [place] # (Auto) 300 Eos # (Auto) 100 Baso # (Auto) 0 RBC Morphology See below Hypochromasia 1+ H Anisocytosis 1+ H Microcytosis 2+ H Sodium 136 L Potassium 3.7 Chloride 109 H Carbon Dioxide 23 BUN 11 Creatinine 0.54 Estimated GFR > 60 BUN/Creatinine Ratio 20.4 Glucose 105 H Calcium 7.9 L Total Bilirubin 0.2 AST 18 ALT 11 Alkaline Phosphatase 56 Total Protein 6.3 Albumin 3.4 L Globulin 2.9 Albumin/Globulin Ratio 1.2 Serum , Qual Negative Blood Type A Positive Antibody Screen Negative Assessment & Plan Assessment and plan (1) Uterine leiomyoma: Qualifiers: Uterine leiomyoma location: intramural, submucous, and subserous Qualified Code(s): D25.1 - Intramural leiomyoma of uterus; D25.0 - Submucous leiomyoma of uterus; D25.2 - Subserosal leiomyoma of uterus Status: Acute (2) Menorrhagia with regular cycle: Status: Acute (3) Symptomatic anemia: Status: Acute Assessment & Plan narrative: 44yo with known fibroid uterus with acute episode of vaginal bleeding and syncope, admitted for definitive management. Discussed hysterectomy as the only definitive management for this condition, and patient agrees with proceeding with this surgery. Discussed that given the size of her uterus, would need to plan for an open procedure. -plan is scheduled for surgery at 11:00 a.m. this morning; final surgical plan will be determined between the patient and Dr. Sam -patient has been NPO since last night -2 g Ancef for prophylaxis -VTE risk low, plan for SCDs for prophylaxis -plan for at least 1 night in the hospital postop Time-Based Coding :: [30min] spent with patient and on the chart (including review of chart, obtaining history, exam, reviewing outside data, placing orders, documenting exam and treatment plan, and counseling patient) on [03/04/24]. Quality VTE Deep Vein Thrombosis/Pulmonary Embolism Present on Admission: No
--- NOTE | 2024-03-04 09:27 | PM.PREOP ---
Pre-operative Note Interval Note History & Physical reviewed/Exam performed by Physician: Yes Changes to H&P: No H&P completed within 30 days and has changed as indicated here:: 03/04/24
--- NOTE | 2024-03-04 11:10 | DIET.CONS ---
Dietary Consultation Note Admission Date: 03/03/2024 18:21 Assessment: 44 y F presented to ED for vaginal bleeding, headache, and dizziness. Nutrition screened for low MNA. Pt in surgery, chart reviewed. Will coordinate with unit host/kitchen to provide ONS or protein smoothie daily to ensure adequate intake when diet is advanced. F/u within 3 days for full assessment. Will monitor po intakes when diet advanced. Ht: 160.02 cm Wt: 73.5 kg BMI: 28.7 UBW: 68.039 kg on 08/25/23, no weight loss per EMR Last BM: 04/02/24 (03/03/24 18:55) MNA: 8 Justice Score: 21 Diet: 03/04/24 07:42 NPO Diet Diet Modifications: NPO Type: NPO after Midnight Labs: RBC 3.78 X10^6/uL (4.0-5.2) L 03/03/24 16:16 Hgb 8.3 g/dL (12.0-16.0) L 03/03/24 16:16 Hct 26.2 % (36-46) L 03/03/24 16:16 Creatinine 0.54 mg/dL (0.52-1.04) 03/03/24 16:16 Electronically Signed by: Eugenia Reyes 03/04/24 11:10 Clinical Dietitian [address] [address]
[2024-03-04] MEDS: LACTATED RINGERS 1,000 ML 42 ML IV ×2 (11:21→13:55)
[2024-03-04] MEDS: ACETAMINOPHEN IV 1,000 MG/100 ML VIAL 400 MG IV (11:30)
--- NOTE | 2024-03-04 11:47 | SUR.OPER ---
Supine on padded OR bed, head on pillow, arms secured on padded arm boards at <90 degrees abduction, legs uncrossed, safety belt at thigh, tape over blanket over lower legs.
[2024-03-04 12:08] LABS: Ur Creatinine Normal (Normal); Ur Specific Gravity Normal (Normal); Urine pH Normal (Normal)
[2024-03-04 12:10] LABS: Urine Amphetamines Positive (Negative); Urine Benzodiazepines Positive (Negative); Urine Methamphetamines Positive (Negative)
[2024-03-04 12:11] LABS: UR Morphine/Opiate cutoff 300 Negative (Negative); Urine Barbiturates Negative (Negative); Urine Cocaine Negative (Negative); Urine MDMA Negative (Negative); Urine Methadone Negative (Negative); Urine Oxycodone Negative (Negative); Urine Phencyclidine Negative (Negative); Urine Tetrahydrocannabinol Negative (Negative); Urine Tricyclic Antidepressant Negative (Negative)
--- NOTE | 2024-03-04 12:58 | PM.GYNOP.1 ---
Operative Date/Time/Diagnoses Date of procedure: 03/04/24 Time of procedure: 12:58 Pre-op diagnosis: Enlarged fibroid uterus Menorrhagia Anemia Post-op diagnosis: same Procedure & Clinicians Procedure: Procedures Operation Date: 03/04/24 11:00 Actual Procedure Side Surgeon p Total Abdominal Hysterectomy Meghan Sam MD Abdominal supracervical hysterectomy with bilateral salpingectomy Indications: Patient is a 44-year-old with a 16 week size multifibroid uterus. She has had numerous emergency department visits for heavy bleeding. She has anemia. She presents for an abdominal supracervical hysterectomy with bilateral salpingectomy Surgeon: Meghan Sam Program Project Manager: Isabella Platt Anesthesia Type: General Operative Notes Findings: 18 week size multifibroid uterus Right paratubal cyst Normal ovaries bilaterally Normal tubes bilaterally Closure Type: primary Specimen(s): left tube, right tube and uterus Applied: catheter (To continuous drainage) Estimated blood loss (mL): 250 Blood products transfused: none Procedure in detail: Informed consent was obtained. The patient was taken to the operating room where she was placed in the dorsal supine position. After adequate general endotracheal anesthesia was achieved, she was prepped and draped in the usual sterile fashion. A time-out was performed. A midline incision was made from the umbilicus to the pubic symphysis and carried through to the fascia. The fascia was nicked in the midline and this incision was extended superiorly and inferiorly. The peritoneum was identified, grasped between 2 hemostats, and entered sharply with the Metzenbaum scissors. This incision was extended bluntly. A manual exam was performed. A large Pierce was placed into the incision and the uterus was exteriorized. The round ligaments on both sides were clamped, transected, and suture ligated with 0 Vicryl. The utero-ovarian vessels were clamped, transected, and suture ligated with 0 Vicryl. This was continued down on the broad ligament to the uterine arteries. The bladder flap was created using the Metzenbaum scissors and the bladder taken down off of the lower uterine segment and cervix using an open moistened sponge stick. The bladder flap was continued to the opposite side. The round ligament was clamped, transected, and suture ligated with 0 Vicryl. This was all repeated on the patient's left side. The uterus was amputated from the cervix using the Bovie. The uterus was handed off for specimen. The mesosalpinx was then clamped, transected, and ligated with 0 Vicryl. The tubes were handed off for specimen. The endocervical canal was extensively cauterized. The cervix was closed with a series of simple interrupted sutures using 0 Vicryl. The pelvis was copiously irrigated with warm normal saline. There was no bleeding noted. The Pierce was removed from the incision. The peritoneum was closed with 2-0 Vicryl in a running fashion. The fascia was reapproximated with 0 loop PDS. The subcutaneous layer was irrigated with warm normal saline. Seven simple interrupted sutures were placed to reapproximate subcutaneous layer. The skin was closed with 4-0 Monocryl in a subcuticular fashion. Dermabond was placed over the incision. A Telfa was placed over the incision. Tape was placed over the Telfa. Sponge, lap, and instrument counts were correct x2. The patient tolerated the procedure well, and was taken to PACU in stable condition. Complications: none Post-operative Condition: stable Disposition: PACU Plan for aftercare: To acute care after recovery
[2024-03-04] MEDS: fentaNYL 100 MCG/2 ML INJ IV ×2 (13:53→14:05)
[2024-03-04] MEDS: ONDANSETRON 4 MG/2 ML INJ IV (14:08)
[2024-03-04] MEDS: HYDROMORPHONE 1 MG INJ IV ×3 (14:16→14:36)
[2024-03-04] MEDS: hydrOXYzine HCL 25 MG TABLET PO (14:25)
[2024-03-04] MEDS: KETOROLAC 30 MG/ML VIAL IV ×2 (14:49→20:43)
[2024-03-04] MEDS: OXYCODONE IR 10 MG TABLET PO (15:11)
[2024-03-04] MEDS: LORazepam 2 MG/ML INJ 1 MG IV (15:12)
--- NOTE | 2024-03-04 15:18 | PC.NURSE ---
Addendum entered by Dev Harris R.N. 03/04/24 17:57: 1755 - Patient repeatedly stating she wants to lay on the floor. Provided patient education on importance of resting in bed. Addendum entered by Dev Harris R.N. 03/04/24 17:29: 1730 - Patient more restful. Able to fall asleep, but frequently wakes, shouting for help and yelling out in pain. Original Note: 1500 - Patient screaming in pain, calling out. Received several doses of Dilaudid and Fentanyl in PACU just prior to returning to floor. PRN pain medication administered per EMAR. Dr Platt notified, IV Ativan ordered and administered.
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
[2024-03-04] MEDS: SODIUM CHLORIDE 0.9% FLUSH 10 ML IV (20:44)
[2024-03-05] MEDS: KETOROLAC 30 MG/ML VIAL IV ×2 (02:40→13:56)
[2024-03-05 03:00] VITALS: BP 95/57; PULSE 98; RESP 18; TEMP 37.6; O2SAT 97
[2024-03-05] MEDS: ACETAMINOPHEN 325 MG TABLET 650 MG PO ×2 (05:52→11:47)
[2024-03-05] MEDS: OXYCODONE IR 5 MG TABLET 15 MG PO (06:34)
[2024-03-05 08:00] VITALS: BP 104/63; PULSE 85; RESP 97; O2SAT 97
[2024-03-05 12:00] VITALS: BP 100/44; PULSE 96; RESP 17; TEMP 37.8; O2SAT 100
--- NOTE | 2024-03-05 12:05 | PC.NURSE ---
1144: Patient up OOB ambulated from bed to chair for lunch meal. Tolerating fluids. Au Catheter removed as ordered.
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
[2024-03-05 14:02] LABS: Add Manual Diff / Slide Review NO; Basophils Absolute Auto 0 /uL (0-100); Basophils Percent Auto 0.3 % (0-2); Eosinophils Absolute Auto 0 /uL (0-450); Eosinophils Percent Auto 0.3 % (2-4); Hematocrit 23.1 % (36-46); Hemoglobin 7.4 g/dL (12.0-16.0); Lymphocytes Absolute Auto 1000 /uL (1100-4500); Mean Corpuscular HGB Conc 31.9 % (30-36); Mean Corpuscular Hemoglobin 22.2 PG (26-34); Mean Corpuscular Volume 69.6 fL (80-100); Monocytes Absolute Auto 800 /uL (0-900); Monocytes Percent Auto 11.9 % (3-14); Neutrophils Absolute Auto 5000 /uL (1500-7000); Neutrophils Percent Auto 73.5 % (50-75); Platelet Count 344 X10^3/uL (150-400); Red Blood Cell Count 3.33 X10^6/uL (4.0-5.2); Red Cell Distribution Width 17.2 % (11.6-14.8); White Blood Cell Count 6.8 X10^3/uL (4.5-11.0)
--- NOTE | 2024-03-05 14:33 | PC.NURSE ---
Discharge note: Patient up OOB to shower, voiding and tolerating PO intake. Discharge instructions given to patient. Discussed importance of F/U with Dr. Sam, new medications (next dose and adherence), and surgical incision at home care. Verbalized understanding of instructions. Home via private vehicle with all belongings.
== END 2024-03-05 14:14 | disposition home or self-care (01) | DRG 519 ==
LOC: ED 18:22 → AC 18:24
PROVIDERS: Obstetrics & Gynecology; Admitting Provider Student in an Organized Health Care Education/Training Program; Emergency Provider Emergency Medicine; Referring Provider Emergency Medicine; Visit Provider Student in an Organized Health Care Education/Training Program
PROC: 0UT90ZZ Resection of Uterus, Open Approach (ICD-10-PCS; CPT 58150; principal; 2024-03-04 11:00)
DX: D25.1 Intramural leiomyoma of uterus (principal); D25.0 Submucous leiomyoma of uterus; D25.2 Subserosal leiomyoma of uterus; N92.0 Excessive and frequent menstruation with regular cycle; D64.9 Anemia, unspecified
CPT/HCPCS: 36415; 80053; 80305; 84703; 85025; 86850; 86900; 86901; 93005; 99282; 99285; G0378; A9270; J0136; J0330; J0690; J1100; J1170; J1885; J2060; J2250; J2405; J2704; J3010

== ENCOUNTER 2024-11-16 14:06 | Emergency (ER) | payer OTHER, MEDICAID, SELFPAY ==
[2024-11-16] VITALS (24 sets, daily range): BP systolic 120–169; BP diastolic 78–111; PULSE 74–102; RESP 12–40; TEMP 36.6; O2SAT 86–99; BMI 30.7
--- NOTE | 2024-11-16 | DI.RAD.S_ITS ---
PROCEDURE: XR CHEST 1V INDICATIONS: ETT PLCMT, OG PLCMT TECHNIQUE: One view of the chest was acquired. COMPARISON: [facility], CR, XR CHEST 1V, 11/16/2024, 14:33. FINDINGS: Surgical changes and devices: Nasogastric tube is present projecting below the left hemidiaphragm. Endotracheal tube is present approximately 2.5 cm superior to the maritza. Lungs and pleura: Questionable streaky right basilar opacity less prominent when compared to prior exam. Mediastinum: Mediastinal contours appear normal. Heart size is normal. Bones and chest wall: No suspicious bony lesions. Overlying soft tissues appear unremarkable. IMPRESSION: Support lines as above. Dictated by: Janine Henley M.D. on 11/16/2024 at 15:37 Approved by: Janine Henley M.D. on 11/16/2024 at 15:38
--- NOTE | 2024-11-16 14:06 | ED_ITS ---
HPI - Altered Mental Status General Chief Complaint: Toxicology Problem Stated Complaint: Decreased responsiveness Time Seen by Provider: 11/16/24 14:06 History of Present Illness HPI narrative: 44-year-old female with a history of methadone use, presents to the emergency department via EMS for evaluation of altered mental status. According to medics patient admits to having a verbal altercation with a significant other, she was found altered in front of [employer]. She admitted to medics that she just wanted to have a nap. She does admit to taking some sort of ?anxiety medication at time of evaluation patient arousable but not wanting to contribute to questioning. She is moving all 4 extremities, she was able to stand and walk from the stretcher to the bed. We will order 2 mg IV Narcan given patient's history of methadone and opiate use. Patient is protecting airway not in acute respiratory distress additional ROS HPI limited secondary to patient not cooperating with exam Related Data Previous Rx's Medication Instructions Recorded oxycodone 10 mg tablet 10 mg PO Q6H PRN pain #30 tabs 03/05/24 Allergies Allergy/AdvReac Type Severity Reaction Status Date / Time No Known Drug Allergies Allergy Verified 04/29/23 15:10 Review of Systems Review of Systems ROS Unobtainable: Other (Patient not cooperating with exam) Patient History Medical History (Updated 11/16/24 @ 16:01 by Jens Wahl DO) History of drug abuse Anemia Insomnia Uterine leiomyoma Menorrhagia with regular cycle Panic attacks (2003) Anxiety (2003) Depression (2003) Surgical History (Updated 03/04/24 @ 09:04 by Isabella Platt DO) Status post tubal ligation History of 2 sections Social History household members: none Tobacco: How many years used: 2 second hand exposure: Yes alcohol intake: current substance use type: does not use tobacco type: vaping alcohol intake frequency: holidays/special occasions only Exam Narrative Exam Narrative: General: Cooperative, well-developed, not in acute distress HEENT: Normocephalic, atraumatic, PERRLA, normal sclera, eyelids normal Neck: Active full range of motion, atraumatic Chest: Normal to inspection, negative crepitus, no overlying erythema ecchymosis Respiratory: Normal respiratory effort, not in acute respiratory distress, clear to auscultation bilaterally negative cough, wheeze, tachypnea, rhonchi, rales Cardiology: Regular rate rhythm negative gallop, murmur, rubs GI/: No tenderness to palpation, soft, non rigid, normal to inspection, exam deferred MSK: Full active range of motion in all 4 extremities, atraumatic, no tenderness to palpation of any bony prominences Skin: No rashes or lesions noted Neuro: Patient was able to stand ambulate from gurney to bed, moving all 4 extremities opening eyes, however not talking Psych: Cooperative, Initial Vital Signs Initial Vital Signs: Vital Signs Pulse Rate 74 11/16/24 14:12 Respiratory Rate 17 11/16/24 14:12 Procedures Intubation Time of Intubation: 15:14 Time out performed: Yes sedative: Etomidate Mg Given: 25 paralytic: Rocuronium Mg Given: 50 Laryngoscope: fiber optic video scope ET Tube Size: 8 ET Tube Uncuffed: Yes Tube Secured Depth (cm): 20 Tube Secured Location: teeth Tube Placement Confirmation: Visualized tube passing through cords and Equal breath sounds bilaterally Patient Tolerated Procedure: Well Intubation Complications: none Course Orders Ordered: ED Orders 11/16/24 14:20 Acetaminophen Stat CBC Auto Diff [Complete Blood Count AUTO DIFF] Stat CMP [Comprehensive Metabolic Panel] Stat Ethanol (ETOH) Stat HCG Quantitative /Beta subunit Stat Lipase Stat NT-proBNP (BNP-Adult 18+) Stat Salicylate Stat Troponin & CK Cardiac Panel Stat 11/16/24 14:39 XR chest 1V Stat 11/16/24 15:13 Urine Drug Screen, Rapid Stat 11/16/24 16:45 Arterial Blood Gas STAT 11/16/24 17:04 CT head/brain wo con Stat 11/16/24 17:05 Sputum Culture Stat 11/16/24 17:06 Blood Culture Stat Lactate (Lactic Acid) Stat Propofol (Diprivan) 1,000 mg in 100 mls @ 2.517 mls/hr IV TITRATE ANTOINETTE; Protocol Last Titration: 11/16/24 16:36 Dose: 25 mcg/kg/min, 12.587 mls/hr Documented By: Titration: 11/16/24 16:26 Dose: 20 mcg/kg/min, 10.07 mls/hr Documented By: Titration: 11/16/24 16:20 Dose: 15 mcg/kg/min, 7.552 mls/hr Documented By: Titration: 11/16/24 16:13 Dose: 10 mcg/kg/min, 5.035 mls/hr Documented By: Admin: 11/16/24 15:15 Dose: 5 mcg/kg/min, 2.517 mls/hr Documented By: CONCHA Vancomycin HCl/Dextrose (Vancomycin) 2,000 mg in 400 mls @ 200 mls/hr IV NOW ONE Stop: 11/16/24 17:12 Last Admin: 11/16/24 16:27 Dose: 200 mls/hr Documented By: CONCHA Sodium Chloride (Normal Saline 0.9%) 1,000 mls @ 1,000 mls/hr IV BOLUS ONE Stop: 11/16/24 18:05 Discontinued Medications Albuterol (Albuterol 2.5 Mg/3 Ml Neb (Adult)) 2.5 mg INH NOW ONE Stop: 11/16/24 16:44 Last Admin: 11/16/24 16:59 Dose: 2.5 mg Clonidine HCl (Clonidine 0.1 Mg Tablet) 0.2 mg PO NOW ONE Stop: 11/16/24 14:27 Last Admin: 11/16/24 15:13 Dose: Not Given Documented By: CONCHA Etomidate (Etomidate 2 Mg/Ml 10 Ml Vial) 25 mg IV NOW ONE Stop: 11/16/24 14:57 Last Admin: 11/16/24 15:05 Dose: 25 mg Documented By: CONCHA Piperacillin Sod/Tazobactam (Sod 4.5 gm/ Sodium Chloride) 100 mls @ 200 mls/hr IV NOW ONE Stop: 11/16/24 15:14 Last Infusion: 11/16/24 16:29 Dose: Infused Documented By: Admin: 11/16/24 15:54 Dose: 200 mls/hr Documented By: CONCHA Doxycycline Hyclate 100 mg/ (Sodium Chloride) 100 mls @ 100 mls/hr IV NOW ONE Stop: 11/16/24 17:05 Naloxone HCl (Naloxone 1 Mg/Ml Syringe) 2 mg IV NOW ONE Stop: 11/16/24 14:10 Last Admin: 11/16/24 14:33 Dose: 2 mg Documented By: CONCHA Ondansetron HCl (Ondansetron 4 Mg/2 Ml Inj) 4 mg IV NOW ONE Stop: 11/16/24 14:27 Last Admin: 11/16/24 14:33 Dose: 4 mg Documented By: CONCHA Rocuronium [place] (Rocuronium 50 Mg/5 Ml Inj) 50 mg 0.6 mg/kg (50 mg) IV NOW ONE Stop: 11/16/24 14:57 Last Admin: 11/16/24 15:06 Dose: 50 mg Documented By: CONCHA Vital Signs Vital signs: Vital Signs - 8 hr 11/16/24 14:12 11/16/24 14:15 11/16/24 14:20 Temperature 97.8 F Pulse Rate 74 75 Respiratory Rate 17 16 Blood Pressure 139/87 139/78 Pulse Oximetry 97 Oxygen Delivery Method Room Air 11/16/24 14:20 11/16/24 14:30 11/16/24 14:31 Temperature Pulse Rate 74 96 H Respiratory Rate 12 34 H Blood Pressure 143/100 H Pulse Oximetry 97 Oxygen Delivery Method 11/16/24 14:31 11/16/24 15:00 11/16/24 15:01 Temperature Pulse Rate 82 98 H 98 H Respiratory Rate 40 H Blood Pressure Pulse Oximetry 87 L 87 L Oxygen Delivery Method Room Air 11/16/24 15:01 11/16/24 15:04 11/16/24 15:04 Temperature Pulse Rate 102 H Respiratory Rate 36 H Blood Pressure 147/96 H 149/92 H Pulse Oximetry 86 L Oxygen Delivery Method Room Air 11/16/24 15:08 11/16/24 15:08 11/16/24 15:12 Temperature Pulse Rate 99 H Respiratory Rate 23 Blood Pressure 165/103 H 158/97 H Pulse Oximetry 96 Oxygen Delivery Method 11/16/24 15:12 11/16/24 15:16 11/16/24 15:16 Temperature Pulse Rate 89 93 H Respiratory Rate 12 12 Blood Pressure 157/104 H Pulse Oximetry 99 98 Oxygen Delivery Method Mechanical Ventilation 11/16/24 15:20 11/16/24 15:20 11/16/24 15:30 Temperature Pulse Rate 92 H 88 Respiratory Rate 18 16 Blood Pressure 151/105 H Pulse Oximetry 96 92 Oxygen Delivery Method 11/16/24 15:30 11/16/24 15:46 11/16/24 15:46 Temperature Pulse Rate 87 Respiratory Rate 16 Blood Pressure 158/111 H 169/80 H Pulse Oximetry 92 Oxygen Delivery Method 11/16/24 16:00 11/16/24 16:01 11/16/24 16:01 Temperature Pulse Rate 82 82 Respiratory Rate 23 31 H Blood Pressure 169/96 H Pulse Oximetry 91 91 Oxygen Delivery Method Mechanical Ventilation 11/16/24 16:15 11/16/24 16:15 11/16/24 16:30 Temperature Pulse Rate 79 Respiratory Rate 34 H Blood Pressure 169/102 H 153/95 H Pulse Oximetry 91 Oxygen Delivery Method Mechanical Ventilation 11/16/24 16:30 Temperature Pulse Rate 78 Respiratory Rate 29 H Blood Pressure Pulse Oximetry 92 Oxygen Delivery Method Mechanical Ventilation MDM - Altered Mental Status Differential Diagnosis Differential diagnosis: Likely alcoholic intoxication and hypoglycemia (Electrolyte abnormality, drug abuse,) Lab Data 11/16/24 14:20 11/16/24 14:20 Labs: Lab Results 11/16/24 11/16/24 Range/Units 14:20 15:13 WBC 4.0 L (4.5-11.0) X10^3/uL RBC 4.98 (4.0-5.2) X10^6/uL Hgb 12.0 (12.0-16.0) g/dL Hct 37.3 (36-46) % MCV 74.8 L (80-100) fL MCH 24.1 L (26-34) PG MCHC 32.2 (30-36) % RDW 17.9 H (11.6-14.8) % Plt Count 300 (150-400) X10^3/uL Neut % (Auto) 65.1 (50-75) % Lymph % (Auto) 21.6 L (25-40) % Jackson % (Auto) 12.3 (3-14) % Eos % (Auto) 0.6 L (2-4) % Baso % (Auto) 0.4 (0-2) % Neut # (Auto) 2600 (6081-9711) /uL Lymph # (Auto) 900 L (7732-4571) /uL Jackson # (Auto) 500 (0-900) /uL Eos # (Auto) 0 (0-450) /uL Baso # (Auto) 0 (0-100) /uL Sodium 141 (137-145) mmol/L Potassium 3.9 (3.4-5.1) mmol/L Chloride 107 (98-107) mmol/L Carbon Dioxide 28 (22-32) mmol/L BUN 13 (7-17) mg/dL Creatinine 0.69 (0.52-1.04) mg/dL Estimated GFR > 60 (>60) mL/min BUN/Creatinine Ratio 18.8 (6-22) Glucose 77 (70-100) mg/dL Calcium 8.7 (8.4-10.2) mg/dL Total Bilirubin 0.4 (0.2-1.3) mg/dL AST 25 (14-36) IU/L ALT 15 (<35) IU/L Alkaline Phosphatase 73 (38-126) U/L Total Creatine Kinase 55 (30-135) U/L Troponin I < 0.012 (0.01-0.034) ng/mL NT-Pro-B Natriuret Pep < 20 (<125) pg/mL Total Protein 8.1 (6.3-8.2) g/dL Albumin 4.6 (3.5-5.0) g/dL Globulin 3.5 (1.7-4.1) g/dL Albumin/Globulin Ratio 1.3 (1.0-2.8) Lipase 77 (23-300) U/L HCG, Quant < 2.39 mIU/mL Salicylates < 1.0 (<20) mg/dL U Opiates 300ng/mL cut Negative (Negative) Ur Oxycodone Screen Negative (Negative) Urine Methadone Screen Negative (Negative) Acetaminophen < 10 (10-30) ug/mL Ur Barbiturates Screen Negative (Negative) U Tricyclic Antidepress Negative (Negative) Ur Phencyclidine Scrn Negative (Negative) Ur Amphetamines Screen Positive H (Negative) U Methamphetamines Scrn Positive H (Negative) Ur MDMA Scrn (Ecstasy) Positive H (Negative) U Benzodiazepines Scrn Negative (Negative) Urine Cocaine Screen Negative (Negative) U Marijuana (THC) Screen Negative (Negative) Urine pH Normal (Normal) Urine Specific [place] Normal (Normal) Ethyl Alcohol < 10 ( - 10) mg/dL Ur Creatinine Normal (Normal) Point of Care Testing Glucose POC 78 Imaging Data Chest x-ray: Radiologist's Impression: [address] [address] XRay Report Signed Patient: Radha Arias MR#: [id number] : 1980 Acct:[id number] Age/Sex: 44 / F Date of Service: 11/16/24 Loc: ED Accession Number: [id number] Procedure: XR chest 1V Ordering Provider: Jens Wahl D.O. PROCEDURE: XR CHEST 1V INDICATIONS: ?aspiration TECHNIQUE: One view of the chest was acquired. COMPARISON: [facility], XR CHEST 1V, 09/04/2023, 18:14. FINDINGS: Surgical changes and devices: None. Lungs and pleura: Minimal streaky opacity in the right base. Mediastinum: Mediastinal contours appear normal. Heart size is normal. Bones and chest wall: No suspicious bony lesions. Overlying soft tissues appear unremarkable. IMPRESSION: Minimal streaky right basilar opacity. This could represent atelectasis. Developing pneumonia cannot be definitively excluded. Repeat chest x-ray: Radiologist's Impression: [place] [address] XRay Report Signed Patient: Radha Arias MR#: [id number] : 1980 Acct:[id number] Age/Sex: 44 / F Date of Service: 11/16/24 Loc: ED Accession Number: [id number] Procedure: XR chest 1V Ordering Provider: Jens Wahl D.O. PROCEDURE: XR CHEST 1V INDICATIONS: ETT PLCMT, OG PLCMT TECHNIQUE: One view of the chest was acquired. COMPARISON: [facility], XR CHEST 1V, 11/16/2024, 14:33. FINDINGS: Surgical changes and devices: Nasogastric tube is present projecting below the left hemidiaphragm. Endotracheal tube is present approximately 2.5 cm superior to the maritza. Lungs and pleura: Questionable streaky right basilar opacity less prominent when compared to prior exam. Mediastinum: Mediastinal contours appear normal. Heart size is normal. Bones and chest wall: No suspicious bony lesions. Overlying soft tissues appear unremarkable. IMPRESSION: Support lines as above. MDM Narrative Medical decision making narrative: 44-year-old female with a history of methadone use presenting via EMS for evaluation of altered mental status. Patient admitted to a verbal altercation with a significant other, she was found outside [facility] stating that she took some ?anxiety medication. She was able to stand walk and ambulate from the [facility] to the stretcher here. She is moving all 4 extremities however initial evaluation patient refusing to cooperate/talk on exam. 2 mg IV Narcan ordered, patient is protecting airway. Patient immediately awakened after 2 mg IV Narcan, she then admits to taking fentanyl, therefore clonidine Zofran fluids ordered. 1457: Patient re-evaluated, she is having worsening shortness of breath witnessed aspiration event here in the emergency department, pulse ox 87%, deep suction and pulmonary PT was performed without any relief, given patient has progressive decline and stating that she is still severely nauseated unable to tolerate BiPAP patient will be intubated for airway protection. 1515: Patient was intubated successfully with an 8-0 tube, propofol ordered, will order vanc Zosyn for aspiration pneumonia. Patient is spent in settings, tidal volume 420, peep of 5, 50% FiO2, respirations 16 1600: Was informed by nursing staff that we do not have any ICU beds at this time, therefore will reach out to surrounding hospitalist for transfer for ICU admission 1635: Patient's pulse ox reading in the high 80s, adjusted vent settings to tidal volume of 370, respirations 20, peep of 70%, added albuterol nebulizer treatment, attempted to suction without any fluids suctioned, we will continue to monitor 1702: Discussed case with medical sales specialist Lashaun Nielsen ([facility]). Agrees with admission/transfer, is requesting CT head, ABG, sputum culture, blood culture, he is also requesting to add IV doxy, he states that if patient starts having worsening pulse ox would recommend increasing the PEEP. Discharge Plan Departure Patient Disposition: [facility] Clinical Impression: Opiate overdose, Acute hypoxic respiratory failure, Drug abuse Prescriptions: No Action oxycodone 10 mg tablet 10 mg PO Q6H PRN (Reason: pain) Qty: 30 0RF Referrals: Miscellaneous,Doctor, [Primary Care Provider] -
--- NOTE | 2024-11-16 14:20 | PC.NURSE ---
Physician at bedside, pt vomited post-narcan administration and aspirated. precision lens grinder apprentice, float RN, physician, RT and cap cutter at bedside assisting patient. X-ray at bedside for chest film.
[2024-11-16 14:33] LABS: Add Manual Diff / Slide Review NO; Basophils Absolute Auto 0 /uL (0-100); Basophils Percent Auto 0.4 % (0-2); Eosinophils Absolute Auto 0 /uL (0-450); Eosinophils Percent Auto 0.6 % (2-4); Hematocrit 37.3 % (36-46); Lymphocytes Absolute Auto 900 /uL (1100-4500); Lymphocytes Percent Auto 21.6 % (25-40); Mean Corpuscular HGB Conc 32.2 % (30-36); Mean Corpuscular Hemoglobin 24.1 PG (26-34); Mean Corpuscular Volume 74.8 fL (80-100); Monocytes Absolute Auto 500 /uL (0-900); Monocytes Percent Auto 12.3 % (3-14); Neutrophils Absolute Auto 2600 /uL (1500-7000); Neutrophils Percent Auto 65.1 % (50-75); Platelet Count 300 X10^3/uL (150-400); Red Blood Cell Count 4.98 X10^6/uL (4.0-5.2); Red Cell Distribution Width 17.9 % (11.6-14.8)
[2024-11-16] MEDS: NALOXONE 1 MG/ML SYRINGE 2 MG IV (14:33)
[2024-11-16] MEDS: ONDANSETRON 4 MG/2 ML INJ IV (14:33)
--- NOTE | 2024-11-16 14:39 | DI.RAD.S_ITS ---
PROCEDURE: XR CHEST 1V INDICATIONS: ?aspiration TECHNIQUE: One view of the chest was acquired. COMPARISON: [facility], [facility], XR CHEST 1V, 09/04/2023, 18:14. FINDINGS: Surgical changes and devices: None. Lungs and pleura: Minimal streaky opacity in the right base. Mediastinum: Mediastinal contours appear normal. Heart size is normal. Bones and chest wall: No suspicious bony lesions. Overlying soft tissues appear unremarkable. IMPRESSION: Minimal streaky right basilar opacity. This could represent atelectasis. Developing pneumonia cannot be definitively excluded. Dictated by: Janine Henley M.D. on 11/16/2024 at 15:26 Approved by: Janine Henley M.D. on 11/16/2024 at 15:37
[2024-11-16 14:43] LABS: Acetaminophen < 10 ug/mL (10-30); Alanine Aminotransferase 15 IU/L (<35); Albumin 4.6 g/dL (3.5-5.0); Albumin Globulin Ratio 1.3 (1.0-2.8); Alkaline Phosphatase 73 U/L (38-126); Aspartate Aminotransferase 25 IU/L (14-36); BUN Creatinine Ratio 18.8 (6-22); Bilirubin Total 0.4 mg/dL (0.2-1.3); Blood Urea Nitrogen 13 mg/dL (7-17); Calcium 8.7 mg/dL (8.4-10.2); Carbon Dioxide 28 mmol/L (22-32); Chloride 107 mmol/L (98-107); Estimated Glomerular Filt Rate > 60 mL/min (>60); Ethanol (ETOH) < 10 mg/dL; Globulin 3.5 g/dL (1.7-4.1); Glucose 77 mg/dL (70-100); HEMOLYSIS < 15 (0-50); Lipase 77 U/L (23-300); Potassium 3.9 mmol/L (3.4-5.1); Salicylate < 1.0 mg/dL (<20); Sodium 141 mmol/L (137-145); Total Protein 8.1 g/dL (6.3-8.2)
[2024-11-16 14:59] LABS: HCG Quantitative /Beta subunit < 2.39 mIU/mL
[2024-11-16] MEDS: ETOMIDATE 2 MG/ML 10 ML VIAL 25 MG IV (15:05)
[2024-11-16] MEDS: ROCURONIUM 50 MG/5 ML INJ IV (15:06)
[2024-11-16] MEDS: propofoL 1,000 MG/100 ML VIAL 2.517 MG IV (15:15)
[2024-11-16 15:32] LABS: Creatine Kinase 55 U/L (30-135)
[2024-11-16 15:45] LABS: NT-proBNP (BNP-Adult 18+) < 20 pg/mL (<125); Troponin I < 0.012 ng/mL (0.01-0.034)
[2024-11-16 15:53] LABS: Ur Creatinine Normal (Normal); Ur Specific Gravity Normal (Normal); Urine pH Normal (Normal)
[2024-11-16 15:54] LABS: UR Morphine/Opiate cutoff 300 Negative (Negative); Urine Amphetamines Positive (Negative); Urine Barbiturates Negative (Negative); Urine Benzodiazepines Negative (Negative); Urine Cocaine Negative (Negative); Urine MDMA Positive (Negative); Urine Methadone Negative (Negative); Urine Methamphetamines Positive (Negative); Urine Oxycodone Negative (Negative); Urine Phencyclidine Negative (Negative); Urine Tetrahydrocannabinol Negative (Negative); Urine Tricyclic Antidepressant Negative (Negative)
[2024-11-16] MEDS: PIPERACILLIN/TAZO 4.5 GM in SODIUM CHLORIDE 0.9% 100 ML IV (15:54)
--- NOTE | 2024-11-16 16:26 | PC.NURSE ---
Pt ventilated 22 @ the teeth
[2024-11-16] MEDS: VANCOMYCIN 2,000 MG/400 ML PIGGYBACK 200 MG IV (16:27)
--- NOTE | 2024-11-16 16:40 | PC.NURSE ---
Friend dropped off 7 bags of personal belongings in the ED lobby for pt.
[2024-11-16] MEDS: ALBUTEROL 2.5 MG/3 ML NEB (ADULT) INH (16:59)
[2024-11-16] MEDS: SODIUM CHLORIDE 0.9% 1,000 ML 1000 ML IV (17:21)
[2024-11-16 17:30] LABS: Base Excess ABG 0.9 mmol/L (-2-3); Blood Gas Mode Pressure Reg Vol Con; Delivery System Adult Ventilator; HCO3 ABG 28 mmol/L (23-27); Oxygen Saturation ABG 97 % (95-100); PCO2 ABG 54.3 mmHg (35-45); PEEP 5; PO2 ABG 103 mmHg (80-100); Respiratory Rate 20; TCO2 ABG 27 mmol/L (23-27); pH ABG 7.32 (7.35-7.45)
[2024-11-16] MEDS: DOXYCYCLINE 100 MG in SODIUM CHLORIDE 0.9% 100 ML IV (17:34)
--- NOTE | 2024-11-16 17:57 | PC.NURSE ---
Per contract negotiator, father will black pickler patient's belongings. Per Charge, belongings to be kept in [place] [facility] until father picks up.
[2024-11-16 17:58] LABS: Lactate (Lactic Acid) 1.4 mmol/L (0.7-2.1)
--- NOTE | 2024-11-16 18:03 | PC.NURSE ---
Report given to Tarik ARTEAGA @ [facility]. Per recreation leader, father will garbage pick up worker patient's belongings. Per Charge, belongings to be kept in [place] ED until father picks up. Pt left in soft restraints due to intubation, VSS, CMS in tact. Doxycycline running at time of departure, Propofol running at 25 mcg/kg/min at time of departure.
[2024-11-16] MEDS: propofoL 1,000 MG/100 ML VIAL 12.587 MG IV (18:10)
--- NOTE | 2024-11-16 18:13 | PC.NURSE ---
Full/new bottle given to special education resource teacher for vented patient so they don't run out of sedation medication in route. golf ball winder aware.
== END 2024-11-16 18:23 | disposition short-term general hospital (02) ==
PROVIDERS: Emergency Provider Student in an Organized Health Care Education/Training Program
DX: T40.601A Poisoning by unspecified narcotics, accidental (unintentional), initial encounter (principal); J96.01 Acute respiratory failure with hypoxia; F19.10 Other psychoactive substance abuse, uncomplicated
CPT/HCPCS: 31500; 36415; 36600; 71045; 80053; 80305; 80320; 80329; 82550; 82805; 82962; 83605; 83690; 83880; 84484; 84702; 85025; 87040; 87070; 87147; 87205; 94002; 94799; 96365; 96366; 96367; 96368; 96375; 99152; 99153; 99285; G0480; J2310; J2405; J2543; J2704; J7613